=== PATIENT | female | born 1980 | race Caucasian/White ===

== ENCOUNTER 2021-09-20 08:21 | Outpatient (REF) | payer OTHER, SELFPAY ==
[2021-09-20 09:35] LABS: Anion Gap 12 (12-20); Blood Urea Nitrogen 9 mg/dL (9-16); Calcium 9.8 mg/dL (8.4-10.2); Carbon Dioxide 27 mmol/L (22-29); Chloride 107 mmol/L (96-108); Estimated Glomerular Filt Rate > 60; Glucose Random 109 mg/dL (60-115); Potassium 4.2 mmol/L (3.3-5.1); Sodium 142 mmol/L (135-145)
[2021-09-27 00:26] LABS: Beta-Hydroxybutyrate 0.09 mmol/L
== END 2021-09-20 08:22 | disposition home or self-care (01) ==
LOC: HO.LAB 08:21
PROVIDERS: PCP Family Medicine; Visit Provider Family Medicine
DX: E11.65 Type 2 diabetes mellitus with hyperglycemia (principal)
CPT/HCPCS: 36415; 80048; 82010

== ENCOUNTER 2021-10-11 10:50 | Outpatient (REF) | payer OTHER, SELFPAY ==
[2021-10-13 01:35] LABS: C Peptide 3.21 ng/mL (0.80-3.85)
[2021-10-16 20:17] LABS: Glutamic acid decarboxylase Ab <5 IU/mL (<5)
== END 2021-10-11 10:51 | disposition home or self-care (01) ==
LOC: HO.LAB 10:50
PROVIDERS: PCP Nurse Practitioner Primary Care; Visit Provider Nurse Practitioner Neonatal
DX: E11.65 Type 2 diabetes mellitus with hyperglycemia (principal)
CPT/HCPCS: 36415; 84681; 86341

== ENCOUNTER 2021-11-27 08:32 | Outpatient (REF) | payer OTHER, SELFPAY ==
[2021-11-27 09:33] LABS: Estimated Average Glucose 131 mg/dL; Hemoglobin A1c % 6.2 %
== END 2021-11-27 08:33 | disposition home or self-care (01) ==
LOC: HO.LAB 08:32
PROVIDERS: PCP Family Medicine; Visit Provider Nurse Practitioner Neonatal
DX: E11.65 Type 2 diabetes mellitus with hyperglycemia (principal)
CPT/HCPCS: 36415; 83036

== ENCOUNTER 2022-10-08 14:02 | Emergency (ER) | payer OTHER, MEDICAID, SELFPAY ==
--- NOTE | ~2022-10-08 | XR_ITS ---
EXAMINATION: XR CHEST CLINICAL INFORMATION: Pneumonia COMPARISON: None TECHNIQUE: Frontal view of the chest was obtained. FINDINGS: No significant abnormality is noted involving the heart, lungs, mediastinum, bony thorax or soft tissues. XR/XR chest 1V IMPRESSION: No acute pulmonary disease.
[2022-10-08 14:21] VITALS: BP 152/86; PULSE 111; RESP 18; TEMP 36.3; O2SAT 99; BMI 33.6
--- NOTE | 2022-10-08 14:27 | ECG_ITS ---
Test Reason : HEART RACING Blood Pressure : / mmHG Vent. Rate : 107 BPM Atrial Rate : 107 BPM P-R Int : 154 ms QRS Dur : 072 ms QT Int : 318 ms P-R-T Axes : 054 [id number] 006 degrees QTc Int : 424 ms Sinus tachycardia Otherwise normal ECG No previous ECGs available Referred By: Emanuel Rowland Electronically Signed By:SONALI VALLADARES MD
--- NOTE | 2022-10-08 14:28 | ED_ITS ---
HPI - General Adult General Chief complaint: General Medical <DUNIA Guthrie - Last Filed: 10/08/22 19:43> Stated complaint: blood sugar issue <DUNIA Guthrie Last Filed: 10/08/22 19:43> Time Seen by Provider: 10/08/22 15:17 <DUNIA Guthrie - Last Filed: 10/08/22 19:43> Source: patient <DUNIA Chinchilla Last Filed: 10/08/22 16:00> Mode of arrival: ambulatory <DUNIA Chinchilla - Last Filed: 10/08/22 16:00> Limitations: no limitations <DUNIA Chinchilla Last Filed: 10/08/22 16:00> History of Present Illness HPI narrative: Patient is a 41 year old assigned female at with a history of DM presenting to the emergency department today with episodes of hypoglycemia. Patient states that over the last few days she has had episodes of hypoglycemia that is associated with palpitations and a headache. Patient denies any recent medication changes. Patient denies any current dizziness, lightheadedness, abdominal pain, nausea, vomiting, fever, chills, blurry vision, double vision, loss of vision, chest pain, difficulty breathing, shortness of breath, back pain, night sweats, pain with urination, increased urinary frequency, increased urinary urgency, blood in her urine or stool, syncope or a near syncopal episode, recent trauma or falls, bowel incontinence, bladder incontinence, bowel retention, bladder retention, or any other complaints at this time. <DUNIA Chinchilla Last Filed: 10/08/22 16:00> Onset (ago): day(s) (3) <DUNIA Chinchilla - Last Filed: 10/08/22 16:00> Severity: mild <DUNIA Chinchilla Last Filed: 10/08/22 16:00> Severity scale (1-10): 2 <DUNIA Chinchilla Last Filed: 10/08/22 16:00> Relieving factors: none <DUNIA Chinchilla Last Filed: 10/08/22 16:00> Exacerbating factors: none <DUNIA Chinchilla Last Filed: 10/08/22 16:00> Associated symptoms: denies other symptoms <DUNIA Chinchilla Last Filed: 10/08/22 16:00> Treatments prior to arrival: none <DUNIA Chinchilla Last Filed: 10/08/22 16:00> Related Data Allergies/adverse reactions: Allergies Allergy/AdvReac Type Severity Reaction Status Date / Time amoxicillin [From AUGMENTIN] Allergy Unknown HIVES Unverified 06/09/20 19:28 clavulanic acid Allergy Unknown HIVES Unverified 06/09/20 19:28 [From AUGMENTIN] <DUNIA Guthrie - Last Filed: 10/08/22 19:43> Review of Systems Constitutional: Constitutional: Reports no additional constitutional complaints, Denies chills, Denies fever(s) and Denies night sweats <DUNIA Chinchilla Last Filed: 10/08/22 16:00> Eyes: Eyes: Reports no additional eye complaints, Denies blurry vision, Denies change in vision, Denies diplopia, Denies eye discharge, Denies loss of vision and Denies eye pain <DUNIA Chinchilla Last Filed: 10/08/22 16:00> ENT: Denies dizziness <DUNIA Chinchilla Last Filed: 10/08/22 16:00> Cardiovascular: Cardiovascular: Reports no additional cardiovascular complaints, Denies chest pain, Denies lightheadedness, Denies Loss of Consciousness and Denies dyspnea <DUNIA Chinchilla Last Filed: 10/08/22 16:00> Respiratory: Respiratory: Reports no additional respiratory complaints and Denies dyspnea <DUNIA Chinchilla Last Filed: 10/08/22 16:00> Gastrointestinal: Gastrointestinal: Reports no additional gastrointestinal complaints, Denies abdominal pain, Denies melena, Denies hematochezia, Denies change in bowel habits and Denies change in stool character <DUNIA Chinchilla Last Filed: 10/08/22 16:00> Genitourinary: Genitourinary: Denies hematuria, Denies urinary frequency, Denies dysuria, Denies urinary incontinence, Denies urinary hesitancy and Denies urinary urgency <DUNIA Chinchilla Last Filed: 10/08/22 16:00> Musculoskeletal: Musculoskeletal: Reports no additional musculoskeletal complaints, Denies numbness and Denies tingling <DUNIA Chinchilla - Last Filed: 10/08/22 16:00> Neurologic: Denies dizziness, Denies loss of vision, Denies numbness and Marlon es tingling <DUNIA Chinchilla - Last Filed: 10/08/22 16:00> Psychiatric: Psychiatric: Reports no additional psychiatric complaints <DUNIA Chinchilla - Last Filed: 10/08/22 16:00> Endocrine: Endocrine: Reports no additional endocrine complaints <DUNIA Chinchilla - Last Filed: 10/08/22 16:00> Hematologic/Lymphatic: Hematologic/Lymphatic: Reports no additional hematologic/lymphatic complaints <DUNIA Chinchilla - Last Filed: 10/08/22 16:00> Allergic/Immunologic: Allergic/Immunologic: Reports no additional allergic/immunologic complaints <DUNIA Chinchilla - Last Filed: 10/08/22 16:00> PMFSH Past Medical History Attestation statement: The following information was validated with the patient. <DUNIA Chinchilla - Last Filed: 10/08/22 16:00> Source: old records reviewed and nursing notes reviewed <DUNIA Chinchilla - Last Filed: 10/08/22 16:00> Social History Social History: Social History Advance Directives: Yes Advance Directives Information Provided: No Advance Directives on File: No <DUNIA Guthrie - Last Filed: 10/08/22 19:43> Physical Exam ED Vital Signs: Vital Signs - 24 hr 10/08/22 14:21 Temperature 97.3 F Pulse Rate 111 H Respiratory Rate 18 Blood Pressure 152/86 H Pulse Oximetry 99 Oxygen Delivery Method Room Air BMI result Body Mass Index 33.6 <DUNIA Guthrie - Last Filed: 10/08/22 19:43> Vital Signs - 24 hr 10/08/22 14:21 Temperature 97.3 F Pulse Rate 111 H Respiratory Rate 18 Blood Pressure 152/86 H Pulse Oximetry 99 Oxygen Delivery Method Room Air BMI result Body Mass Index 33.6 <DUNIA Chinchilla - Last Filed: 10/08/22 16:00> Const General: cooperative, no acute distress, alert and awake <DUNIA Chinchilla Last Filed: 10/08/22 16:00> Nutritional Appearance: well nourished <DUNIA Chinchilla - Last Filed: 10/08/22 16:00> Orientation/consciousness: patient oriented x3 <Nayeli Romeo [place] - Last Filed: 10/08/22 16:00> Limitations: no limitations <Nayeli Romeo [place] - Last Filed: 10/08/22 16:00> HENMT Head: Yes normal to inspection and Yes atraumatic <Nayeli Romeo PA - Last Filed: 10/08/22 16:00> Ears: hearing grossly normal bilaterally and external ears normal <Nayeli Romeo PA - Last Filed: 10/08/22 16:00> General nose exam: Normal external nose present, no nasal discharge noted and no epistaxis <Nayeli Romeo PA - Last Filed: 10/08/22 16:00> Face and sinus: Yes normal facial exam, No abrasion and No laceration <Nayeli Romeo [place] - Last Filed: 10/08/22 16:00> Mouth: Normal oral and palatal mucosa present, no drooling and no muffled voice <Nayeli Romeo [place] - Last Filed: 10/08/22 16:00> Eyes General: appearance normal, both eyes and all related structures <DUNIA Chinchilla - Last Filed: 10/08/22 16:00> Periorbital: periorbital findings normal <DUNIA Chinchilla - Last Filed: 10/08/22 16:00> Eyelids: Yes eyelids normal <DUNIA Chinchilla - Last Filed: 10/08/22 16:00> Conjunctivae: conjunctivae normal <DUNIA Chinchilla - Last Filed: 10/08/22 16:00> Pupils: Equal, round and reactive pupils present <DUNIA Chinchilla - Last Filed: 10/08/22 16:00> EOM: EOMs intact bilaterally <DUNIA Chinchilla - Last Filed: 10/08/22 16:00> Neck Neck: Yes normal visual inspection, Yes full ROM and Yes no lymphadenopathy <DUNIA Chinchilla - Last Filed: 10/08/22 16:00> Chest Chest palpation & inspection: normal inspection of the chest <Nayeli RomeoDUNIA - Last Filed: 10/08/22 16:00> Resp Effort & Inspection: normal respiratory effort and able to speak in complete sentences <Nayeli Romeo PA - Last Filed: 10/08/22 16:00> Auscultation: clear to auscultation bilaterally <Nayeli Romeo PA - Last Filed: 10/08/22 16:00> Cardio Rate: tachycardic <Nayeli Romeo PA - Last Filed: 10/08/22 16:00> Rhythm: regular rhythm <Nayeli Romeo PA - Last Filed: 10/08/22 16:00> GI Inspection: Yes normal to inspection <Nayeli RomeoDUNIA - Last Filed: 10/08/22 16:00> Palpation (GI): Soft to palpation, not firm, nontender, no guarding and not rigid <Nayeli Romeo PA - Last Filed: 10/08/22 16:00> Neuro General: patient oriented x3 and moves all extremities <Nayeli Johnsonmatilda PA - Last Filed: 10/08/22 16:00> Cranial nerves: Yes Equal, round and reactive pupils present <Nayeli Romeo PA - Last Filed: 10/08/22 16:00> Cognition (Neuro): normal cognition <Nayeli Romeo PA - Last Filed: 10/08/22 16:00> Motor exam (neuro): 5/5 motor strength present throughout <Nayeli Romeo PA - Last Filed: 10/08/22 16:00> Sensory Exam: Normal double simultaneous stimulation for sensation <Nayeli Johnsonmatilda PA - Last Filed: 10/08/22 16:00> Coordination: [id number] test normal <Nayeli Romeo PA - Last Filed: 10/08/22 16:00> Extrem General: Yes normal to inspection, Yes full ROM and Yes capillary refill normal <Nayeli JohnsonDUNIA grey - Last Filed: 10/08/22 16:00> Psych Appearance: grossly normal <Nayeli JohnsonDUNIA grey - Last Filed: 10/08/22 16:00> Mental Status: mental status grossly normal <Nayelichantelle JohnsonDUNIA grey - Last Filed: 10/08/22 16:00> Affect: normal affect <DUNIA Chinchilla Last Filed: 10/08/22 16:00> Attitude: cooperative <DUNIA Chinchilla Last Filed: 10/08/22 16:00> Thought process: Normal thought process present <DUNIA Chinchilla Last Filed: 10/08/22 16:00> Thought content: Normal thought content present <DUNIA Chinchilla Last Filed: 10/08/22 16:00> Insight: Good insight present (Psych) <DUNIA Chinchilla Last Filed: 10/08/22 16:00> Course Course Course Narrative: RME: patient presents to the ED for recurrent episodes of hypgolcyemia for one week with headache and heart poudning. labs, EKG, glucose POC ordered. Chest xray ordered <DUNIA Guthrie - Last Filed: 10/08/22 19:43> Medical Decision Making Medical Decision Making MDM Narrative: Patient is a 41 year old assigned female at with a history of DM presenting to the emergency department today with intermittent hypoglycemia. Patient's physical exam showed mild tachycardia but was otherwise unremarkable. Patient's blood work showed a slightly elevated WBC count of 12.1 which I attribute to a stress reaction. Patient's urine showed no acute process. Patient's EKG was unremarkable. Patient's x-ray showed no acute process. Patient's COVID-19 test was positive. I explained my physical exam findings as well as all test results to the patient. I answered all questions asked by the patient. I stressed the importance of the patient taking her medication as prescribed. I stressed the importance of the patient following up with her primary care provider. I stressed the importance of the patient returning to the emergency department immediately if her symptoms were to worsen or if she were to develop any dizziness, shortness of breath, difficulty breathing, chest pain, blurry vision, loss of vision, nausea, vomiting, abdominal pain, fever, chills, back pain, or any other complaints. Patient verbalized agreement and understanding with this treatment plan and discharge. <DUNIA Chinchilla Last Filed: 10/08/22 16:00> Differential Diagnosis Differential Diagnoses: The differential diagnosis associated with the presentation includes <DUNIA Chinchilla Last Filed: 10/08/22 16:00> COVID-19, hypoglycemia <DUNIA Chinchilla - Last Filed: 10/08/22 16:00> Lab Data MDM Lab Attestation statement: I reviewed the patient's lab results. <DUNIA Chinchilla - Last Filed: 10/08/22 16:00> Result Diagrams: 10/08/22 14:40 10/08/22 14:40 <DUNIA Guthrie - Last Filed: 10/08/22 19:43> Labs: Lab Results 10/08/22 10/08/22 10/08/22 Range/Units 14:30 14:40 14:40 WBC 12.1 H (4.8-10.8) X10*3/uL RBC 5.42 (4.20-5.50) X10*6/uL Hgb 16.2 H (12.0-16.0) g/dl Hct 46.2 (37.0-47.0) % MCV 85.2 (80.0-98.0) fL MCH 29.9 (27.0-33.0) pg MCHC 35.1 H (31.0-35.0) g/dl RDW 12.0 (11.0-16.0) % Plt Count 259 (160-400) X10*3/uL MPV 10.3 (9.4-12.3) fL Immature Gran % (Auto) 0.3 (0.0-0.4) % Neut % (Auto) 81.4 H (45-73) % Lymph % (Auto) 11.7 L (20-40) % Stokes % (Auto) 5.8 (2-11) % Eos % (Auto) 0.3 (0-4) % Baso % (Auto) 0.5 (0-2) % Lymph # (Auto) 1.4 (1.2-4.9) X10*3/uL Stokes # (Auto) 0.7 (0.1-1.2) X10*3/uL Eos # (Auto) 0.0 (0.0-0.4) X10*3/uL Baso # (Auto) 0.1 (0.0-0.2) X10*3/uL Abs Immat Gran (auto) 0.04 H (0.00-0.03) X10*3/uL Absolute Neuts (auto) 9.9 H (2.0-8.3) x10*3/uL Absolute Nucleated RBC 0.000 (0.0-0.012) X10*3/uL Nucleated RBC % (auto) 0.0 (0.0-0.2) /100WBC PT (10.0-13.1) SEC INR (0.9-1.1) APTT (26.0-36.4) SEC Sodium 139 (135-145) mmol/L Potassium 4.1 (3.3-5.1) mmol/L Chloride 105 (96-108) mmol/L Carbon Dioxide 26 (22-29) mmol/L Anion Gap 12 (12-20) BUN 10 (9-16) mg/dL Creatinine 0.75 (0.5-1.4) mg/dL Estim Creat Clear Calc 102.7 Estimated GFR > 60 POC Glucose 103 (60-115) mg/dL Random Glucose 96 (60-115) mg/dL Calcium 9.2 D (8.4-10.2) mg/dL Total Bilirubin 0.4 (0.0-1.0) mg/dL AST 14 (5-31) U/L ALT 19 (0-31) U/L Alkaline Phosphatase 90 (39-117) U/L Troponin I High Sens (<3.5-17.0) ng/L Total Protein 7.9 (6.5-8.0) g/dL Albumin 4.3 (3.5-5.0) g/dL Urine Color Urine Appearance Urine pH (5.0-9.0) Ur Specific [place] (1.005-1.025) Urine Protein (Neg-Trace) mg/dL Urine Glucose (UA) (Negative) mg/dL Urine Ketones (Negative) mg/dL Urine Blood (Negative) Urine Nitrite (Negative) Ur Leukocyte Esterase (Negative) Influenza Type A (PCR) (Negative) Influenza Type B (PCR) (Negative) RSV RNA Qual (PCR) (Negative) SARS-CoV-2 RNA (RT-PCR) (Negative) 10/08/22 10/08/22 10/08/22 Range/Units 14:40 14:40 14:40 WBC (4.8-10.8) X10*3/uL RBC (4.20-5.50) X10*6/uL Hgb (12.0-16.0) g/dl Hct (37.0-47.0) % MCV (80.0-98.0) fL MCH (27.0-33.0) pg MCHC (31.0-35.0) g/dl RDW (11.0-16.0) % Plt Count (160-400) X10*3/uL MPV (9.4-12.3) fL Immature Gran % (Auto) (0.0-0.4) % Neut % (Auto) (45-73) % Lymph % (Auto) (20-40) % Stokes % (Auto) (2-11) % Eos % (Auto) (0-4) % Baso % (Auto) (0-2) % Lymph # (Auto) (1.2-4.9) X10*3/uL Stokes # (Auto) (0.1-1.2) X10*3/uL Eos # (Auto) (0.0-0.4) X10*3/uL Baso # (Auto) (0.0-0.2) X10*3/uL Abs Immat Gran (auto) (0.00-0.03) X10*3/uL Absolute Neuts (auto) (2.0-8.3) x10*3/uL Absolute Nucleated RBC (0.0-0.012) X10*3/uL Nucleated RBC % (auto) (0.0-0.2) /100WBC PT 11.7 (10.0-13.1) SEC INR 1.0 (0.9-1.1) APTT 34.5 (26.0-36.4) SEC Sodium (135-145) mmol/L Potassium (3.3-5.1) mmol/L Chloride (96-108) mmol/L Carbon Dioxide (22-29) mmol/L Anion Gap (12-20) BUN (9-16) mg/dL Creatinine (0.5-1.4) mg/dL Estim Creat Clear Calc Estimated GFR POC Glucose (60-115) mg/dL Random Glucose (60-115) mg/dL Calcium (8.4-10.2) mg/dL Total Bilirubin (0.0-1.0) mg/dL AST (5-31) U/L ALT (0-31) U/L Alkaline Phosphatase (39-117) U/L Troponin I High Sens < 3.5 (<3.5-17.0) ng/L Total Protein (6.5-8.0) g/dL Albumin (3.5-5.0) g/dL Urine Color Urine Appearance Urine pH (5.0-9.0) Ur Specific [place] (1.005-1.025) Urine Protein (Neg-Trace) mg/dL Urine Glucose (UA) (Negative) mg/dL Urine Ketones (Negative) mg/dL Urine Blood (Negative) Urine Nitrite (Negative) Ur Leukocyte Esterase (Negative) Influenza Type A (PCR) NEGATIVE (Negative) Influenza Type B (PCR) NEGATIVE (Negative) RSV RNA Qual (PCR) NEGATIVE (Negative) SARS-CoV-2 RNA (RT-PCR) POSITIVE A (Negative) 10/08/22 Range/Units 14:48 WBC (4.8-10.8) X10*3/uL RBC (4.20-5.50) X10*6/uL Hgb (12.0-16.0) g/dl Hct (37.0-47.0) % MCV (80.0-98.0) fL MCH (27.0-33.0) pg MCHC (31.0-35.0) g/dl RDW (11.0-16.0) % Plt Count (160-400) X10*3/uL MPV (9.4-12.3) fL Immature Gran % (Auto) (0.0-0.4) % Neut % (Auto) (45-73) % Lymph % (Auto) (20-40) % Stokes % (Auto) (2-11) % Eos % (Auto) (0-4) % Baso % (Auto) (0-2) % Lymph # (Auto) (1.2-4.9) X10*3/uL Stokes # (Auto) (0.1-1.2) X10*3/uL Eos # (Auto) (0.0-0.4) X10*3/uL Baso # (Auto) (0.0-0.2) X10*3/uL Abs Immat Gran (auto) (0.00-0.03) X10*3/uL Absolute Neuts (auto) (2.0-8.3) x10*3/uL Absolute Nucleated RBC (0.0-0.012) X10*3/uL Nucleated RBC % (auto) (0.0-0.2) /100WBC PT (10.0-13.1) SEC INR (0.9-1.1) APTT (26.0-36.4) SEC Sodium (135-145) mmol/L Potassium (3.3-5.1) mmol/L Chloride (96-108) mmol/L Carbon Dioxide (22-29) mmol/L Anion Gap (12-20) BUN (9-16) mg/dL Creatinine (0.5-1.4) mg/dL Estim Creat Clear Calc Estimated GFR POC Glucose (60-115) mg/dL Random Glucose (60-115) mg/dL Calcium (8.4-10.2) mg/dL Total Bilirubin (0.0-1.0) mg/dL AST (5-31) U/L ALT (0-31) U/L Alkaline Phosphatase (39-117) U/L Troponin I High Sens (<3.5-17.0) ng/L Total Protein (6.5-8.0) g/dL Albumin (3.5-5.0) g/dL Urine Color Yellow Urine Appearance Clear Urine pH 6.5 (5.0-9.0) Ur Specific [place] 1.010 (1.005-1.025) Urine Protein Negative (Neg-Trace) mg/dL Urine Glucose (UA) Negative (Negative) mg/dL Urine Ketones Negative (Negative) mg/dL Urine Blood Negative (Negative) Urine Nitrite Negative (Negative) Ur Leukocyte Esterase Negative (Negative) Influenza Type A (PCR) (Negative) Influenza Type B (PCR) (Negative) RSV RNA Qual (PCR) (Negative) SARS-CoV-2 RNA (RT-PCR) (Negative) <DUNIA Guthrie - Last Filed: 10/08/22 19:43> Lab Results 10/08/22 10/08/22 10/08/22 Range/Units 14:30 14:40 14:40 WBC 12.1 H (4.8-10.8) X10*3/uL RBC 5.42 (4.20-5.50) X10*6/uL Hgb 16.2 H (12.0-16.0) g/dl Hct 46.2 (37.0-47.0) % MCV 85.2 (80.0-98.0) fL MCH 29.9 (27.0-33.0) pg MCHC 35.1 H (31.0-35.0) g/dl RDW 12.0 (11.0-16.0) % Plt Count 259 (160-400) X10*3/uL MPV 10.3 (9.4-12.3) fL Immature Gran % (Auto) 0.3 (0.0-0.4) % Neut % (Auto) 81.4 H (45-73) % Lymph % (Auto) 11.7 L (20-40) % Stokes % (Auto) 5.8 (2-11) % Eos % (Auto) 0.3 (0-4) % Baso % (Auto) 0.5 (0-2) % Lymph # (Auto) 1.4 (1.2-4.9) X10*3/uL Stokes # (Auto) 0.7 (0.1-1.2) X10*3/uL Eos # (Auto) 0.0 (0.0-0.4) X10*3/uL Baso # (Auto) 0.1 (0.0-0.2) X10*3/uL Abs Immat Gran (auto) 0.04 H (0.00-0.03) X10*3/uL Absolute Neuts (auto) 9.9 H (2.0-8.3) x10*3/uL Absolute Nucleated RBC 0.000 (0.0-0.012) X10*3/uL Nucleated RBC % (auto) 0.0 (0.0-0.2) /100WBC PT (10.0-13.1) SEC INR (0.9-1.1) APTT (26.0-36.4) SEC Sodium 139 (135-145) mmol/L Potassium 4.1 (3.3-5.1) mmol/L Chloride 105 (96-108) mmol/L Carbon Dioxide 26 (22-29) mmol/L Anion Gap 12 (12-20) BUN 10 (9-16) mg/dL Creatinine 0.75 (0.5-1.4) mg/dL Estim Creat Clear Calc 102.7 Estimated GFR > 60 POC Glucose 103 (60-115) mg/dL Random Glucose 96 (60-115) mg/dL Calcium 9.2 D (8.4-10.2) mg/dL Total Bilirubin 0.4 (0.0-1.0) mg/dL AST 14 (5-31) U/L ALT 19 (0-31) U/L Alkaline Phosphatase 90 (39-117) U/L Troponin I High Sens (<3.5-17.0) ng/L Total Protein 7.9 (6.5-8.0) g/dL Albumin 4.3 (3.5-5.0) g/dL Urine Color Urine Appearance Urine pH (5.0-9.0) Ur Specific [place] (1.005-1.025) Urine Protein (Neg-Trace) mg/dL Urine Glucose (UA) (Negative) mg/dL Urine Ketones (Negative) mg/dL Urine Blood (Negative) Urine Nitrite (Negative) Ur Leukocyte Esterase (Negative) Influenza Type A (PCR) (Negative) Influenza Type B (PCR) (Negative) RSV RNA Qual (PCR) (Negative) SARS-CoV-2 RNA (RT-PCR) (Negative) 10/08/22 10/08/22 10/08/22 Range/Units 14:40 14:40 14:40 WBC (4.8-10.8) X10*3/uL RBC (4.20-5.50) X10*6/uL Hgb (12.0-16.0) g/dl Hct (37.0-47.0) % MCV (80.0-98.0) fL MCH (27.0-33.0) pg MCHC (31.0-35.0) g/dl RDW (11.0-16.0) % Plt Count (160-400) X10*3/uL MPV (9.4-12.3) fL Immature Gran % (Auto) (0.0-0.4) % Neut % (Auto) (45-73) % Lymph % (Auto) (20-40) % [place] % (Auto) (2-11) % Eos % (Auto) (0-4) % Baso % (Auto) (0-2) % Lymph # (Auto) (1.2-4.9) X10*3/uL [place] # (Auto) (0.1-1.2) X10*3/uL Eos # (Auto) (0.0-0.4) X10*3/uL Baso # (Auto) (0.0-0.2) X10*3/uL Abs Immat Gran (auto) (0.00-0.03) X10*3/uL Absolute Neuts (auto) (2.0-8.3) x10*3/uL Absolute Nucleated RBC (0.0-0.012) X10*3/uL Nucleated RBC % (auto) (0.0-0.2) /100WBC PT 11.7 (10.0-13.1) SEC INR 1.0 (0.9-1.1) APTT 34.5 (26.0-36.4) SEC Sodium (135-145) mmol/L Potassium (3.3-5.1) mmol/L Chloride (96-108) mmol/L Carbon Dioxide (22-29) mmol/L Anion Gap (12-20) BUN (9-16) mg/dL Creatinine (0.5-1.4) mg/dL Estim Creat Clear Calc Estimated GFR POC Glucose (60-115) mg/dL Random Glucose (60-115) mg/dL Calcium (8.4-10.2) mg/dL Total Bilirubin (0.0-1.0) mg/dL AST (5-31) U/L ALT (0-31) U/L Alkaline Phosphatase (39-117) U/L Troponin I High Sens < 3.5 (<3.5-17.0) ng/L Total Protein (6.5-8.0) g/dL Albumin (3.5-5.0) g/dL Urine Color Urine Appearance Urine pH (5.0-9.0) Ur Specific [place] (1.005-1.025) Urine Protein (Neg-Trace) mg/dL Urine Glucose (UA) (Negative) mg/dL Urine Ketones (Negative) mg/dL Urine Blood (Negative) Urine Nitrite (Negative) Ur Leukocyte Esterase (Negative) Influenza Type A (PCR) NEGATIVE (Negative) Influenza Type B (PCR) NEGATIVE (Negative) RSV RNA Qual (PCR) NEGATIVE (Negative) SARS-CoV-2 RNA (RT-PCR) POSITIVE A (Negative) 10/08/22 Range/Units 14:48 WBC (4.8-10.8) X10*3/uL RBC (4.20-5.50) X10*6/uL Hgb (12.0-16.0) g/dl Hct (37.0-47.0) % MCV (80.0-98.0) fL MCH (27.0-33.0) pg MCHC (31.0-35.0) g/dl RDW (11.0-16.0) % Plt Count (160-400) X10*3/uL MPV (9.4-12.3) fL Immature Gran % (Auto) (0.0-0.4) % Neut % (Auto) (45-73) % Lymph % (Auto) (20-40) % [place] % (Auto) (2-11) % Eos % (Auto) (0-4) % Baso % (Auto) (0-2) % Lymph # (Auto) (1.2-4.9) X10*3/uL [place] # (Auto) (0.1-1.2) X10*3/uL Eos # (Auto) (0.0-0.4) X10*3/uL Baso # (Auto) (0.0-0.2) X10*3/uL Abs Immat Gran (auto) (0.00-0.03) X10*3/uL Absolute Neuts (auto) (2.0-8.3) x10*3/uL Absolute Nucleated RBC (0.0-0.012) X10*3/uL Nucleated RBC % (auto) (0.0-0.2) /100WBC PT (10.0-13.1) SEC INR (0.9-1.1) APTT (26.0-36.4) SEC Sodium (135-145) mmol/L Potassium (3.3-5.1) mmol/L Chloride (96-108) mmol/L Carbon Dioxide (22-29) mmol/L Anion Gap (12-20) BUN (9-16) mg/dL Creatinine (0.5-1.4) mg/dL Estim Creat Clear Calc Estimated GFR POC Glucose (60-115) mg/dL Random Glucose (60-115) mg/dL Calcium (8.4-10.2) mg/dL Total Bilirubin (0.0-1.0) mg/dL AST (5-31) U/L ALT (0-31) U/L Alkaline Phosphatase (39-117) U/L Troponin I High Sens (<3.5-17.0) ng/L Total Protein (6.5-8.0) g/dL Albumin (3.5-5.0) g/dL Urine Color Yellow Urine Appearance Clear Urine pH 6.5 (5.0-9.0) Ur Specific [place] 1.010 (1.005-1.025) Urine Protein Negative (Neg-Trace) mg/dL Urine Glucose (UA) Negative (Negative) mg/dL Urine Ketones Negative (Negative) mg/dL Urine Blood Negative (Negative) Urine Nitrite Negative (Negative) Ur Leukocyte Esterase Negative (Negative) Influenza Type A (PCR) (Negative) Influenza Type B (PCR) (Negative) RSV RNA Qual (PCR) (Negative) SARS-CoV-2 RNA (RT-PCR) (Negative) <DUNIA Chinchilla - Last Filed: 10/08/22 16:00> Independent Interpretation I performed an independent interpretation of an: EKG <DUNIA Chinchilla - Last Filed: 10/08/22 16:00> Interpretation: Vent. Rate: 107 BPM ? ? Atrial Rate: 107 BPM P-R Int: 154 ms? QRS Dur: 072 ms QT Int: 318 ms ? ? ? P-R-T Axes: 054 007 006 degrees QTc Int: 424 ms ? Sinus tachycardia Otherwise normal ECG No previous ECGs available DD/ 1444 <DUNIA Chinchilla - Last Filed: 10/08/22 16:00> Radiology Impression Discussion of test interpretation with radiology: I have reviewed the radiologist's reading. <DUNIA Chinchilla - Last Filed: 10/08/22 16:00> Radiologist Impression: My interpretation is in agreement with the radiologist's impression of this imaging study. EXAMINATION: XR CHEST CLINICAL INFORMATION: Pneumonia COMPARISON: None TECHNIQUE: Frontal view of the chest was obtained. FINDINGS: No significant abnormality is noted involving the heart, lungs, mediastinum, bony thorax or soft tissues. XR/XR chest 1V IMPRESSION: No acute pulmonary disease. Dictated By: Marbin Albarado MD Signed By: Electronically signed by Marbin Albarado MD 10/08/22 1544 <DUNIA Chinchilla - Last Filed: 10/08/22 16:00> Discharge Plan Discharge Clinical Impression: COVID-19 <DUNIA Guthrie Last Filed: 10/08/22 19:43> Patient Disposition: Home, Self-Care <DUNIA Guthrie Last Filed: 10/08/22 19:43> Instructions: COVID-19 (Coronavirus Disease 2019) (ED) <DUNIA Guthrie - Last Filed: 10/08/22 19:43> Additional Instructions: Follow up with your primary care provider. Return to the emergency department immediately if your symptoms worsen or if you develop any dizziness, shortness of breath, difficulty breathing, chest pain, blurry vision, loss of vision, nausea, vomiting, abdominal pain, fever, chills, back pain, or any other complaints. <DUNIA Guthrie Last Filed: 10/08/22 19:43> Referrals: Azar Koenig MD [Primary Care Provider] - <DUNIA Guthrie Last Filed: 10/08/22 19:43> Stand Alone Forms: Work/School Release <DNUIA Guthrie Last Filed: 10/08/22 19:43> Interventions: ED Discharge Assessment Last Done: 10/08/22 15:45 <DUNIA Guthrie - Last Filed: 10/08/22 19:43> Discharge Date/Time: 10/08/22 15:45 <DUNIA Guthrie - Last Filed: 10/08/22 19:43> Print Language: Macanese <DUNIA Guthrie - Last Filed: 10/08/22 19:43>
[2022-10-08 14:33] LABS: Glucose, Whole Blood 103 mg/dL (60-115)
[2022-10-08 14:45] LABS: MANUAL DIFF FLAG NO
[2022-10-08 14:49] LABS: Basophils Absolute Auto 0.1 X10*3/uL (0.0-0.2); Basophils Percent Auto 0.5 % (0-2); Eosinophils Percent Auto 0.3 % (0-4); Hematocrit 46.2 % (37.0-47.0); Hemoglobin 16.2 g/dl (12.0-16.0); Imm Gran Abs Auto 0.04 X10*3/uL (0.00-0.03); Imm Gran Pct Auto 0.3 % (0.0-0.4); Lymphocytes Absolute Auto 1.4 X10*3/uL (1.2-4.9); Lymphocytes Percent Auto 11.7 % (20-40); Mean Corpuscular HGB Conc 35.1 g/dl (31.0-35.0); Mean Corpuscular Hemoglobin 29.9 pg (27.0-33.0); Mean Corpuscular Volume 85.2 fL (80.0-98.0); Mean Platelet Volume 10.3 fL (9.4-12.3); Monocytes Absolute Auto 0.7 X10*3/uL (0.1-1.2); Monocytes Percent Auto 5.8 % (2-11); Neutrophils Absolute Auto 9.9 x10*3/uL (2.0-8.3); Neutrophils Percent Auto 81.4 % (45-73); Platelet Count 259 X10*3/uL (160-400); Red Blood Count 5.42 X10*6/uL (4.20-5.50); White Blood Count 12.1 X10*3/uL (4.8-10.8)
[2022-10-08 14:54] LABS: Prothrombin Time 11.7 SEC (10.0-13.1)
[2022-10-08 14:55] LABS: Appearance Urine Clear; Color Urine Yellow; Glucose Urine UA Negative (Negative); Leukocyte Esterase Urine Negative (Negative); Nitrite Urine Negative (Negative); PH 6.5 (5.0-9.0); Urine Blood Negative (Negative); Urine Ketones Negative (Negative); Urine Protein Negative (Neg-Trace)
[2022-10-08 14:56] LABS: Partial Thromboplastin Time 34.5 SEC (26.0-36.4)
[2022-10-08 15:02] LABS: Alanine Aminotransferase 19 U/L (0-31); Albumin Level 4.3 g/dL (3.5-5.0); Alkaline Phosphatase 90 U/L (39-117); Anion Gap 12 (12-20); Aspartate Amino Transferase 14 U/L (5-31); Bilirubin Total 0.4 mg/dL (0.0-1.0); Blood Urea Nitrogen 10 mg/dL (9-16); Calcium 9.2 mg/dL (8.4-10.2); Carbon Dioxide 26 mmol/L (22-29); Chloride 105 mmol/L (96-108); Creatinine Clr Calc Pharmacy 102.7; Estimated Glomerular Filt Rate > 60; Glucose Random 96 mg/dL (60-115); Potassium 4.1 mmol/L (3.3-5.1); Sodium 139 mmol/L (135-145); Total Protein 7.9 g/dL (6.5-8.0)
[2022-10-08 15:10] LABS: Troponin-I High Sensitivity < 3.5 ng/L (<3.5-17.0)
[2022-10-08 15:29] LABS: Influenza A PCR NEGATIVE (Negative); Influenza B PCR NEGATIVE (Negative); Resp Syncy Virus RNA Qual PCR NEGATIVE (Negative); SARS COV2 PCR INHOUSE POSITIVE (Negative)
== END 2022-10-08 15:45 | disposition home or self-care (01) ==
PROVIDERS: Physician Assistant; Emergency Provider Emergency Medicine; PCP Internal Medicine
DX: U07.1 COVID-19 (principal); E11.9 Type 2 diabetes mellitus without complications
CPT/HCPCS: 0241U; 36415; 71045; 80053; 81003; 82947; 84484; 85025; 85610; 85730; 93005; 99283

== ENCOUNTER 2022-11-15 16:04 | Outpatient (REF) | payer OTHER, SELFPAY ==
[2022-11-15 16:13] LABS: MANUAL DIFF FLAG NO
[2022-11-15 17:47] LABS: Basophils Absolute Auto 0.1 X10*3/uL (0.0-0.2); Basophils Percent Auto 0.5 % (0-2); Eosinophils Absolute Auto 0.1 X10*3/uL (0.0-0.4); Eosinophils Percent Auto 0.7 % (0-4); Hematocrit 44.4 % (37.0-47.0); Hemoglobin 14.7 g/dl (12.0-16.0); Imm Gran Abs Auto 0.06 X10*3/uL (0.00-0.03); Imm Gran Pct Auto 0.5 % (0.0-0.4); Lymphocytes Absolute Auto 3.6 X10*3/uL (1.2-4.9); Lymphocytes Percent Auto 28.8 % (20-40); Mean Corpuscular HGB Conc 33.1 g/dl (31.0-35.0); Mean Corpuscular Hemoglobin 29.8 pg (27.0-33.0); Mean Corpuscular Volume 90.1 fL (80.0-98.0); Mean Platelet Volume 10.8 fL (9.4-12.3); Monocytes Absolute Auto 0.9 X10*3/uL (0.1-1.2); Monocytes Percent Auto 7.2 % (2-11); Neutrophils Absolute Auto 7.8 x10*3/uL (2.0-8.3); Neutrophils Percent Auto 62.3 % (45-73); Platelet Count 279 X10*3/uL (160-400); Red Blood Count 4.93 X10*6/uL (4.20-5.50); White Blood Count 12.5 X10*3/uL (4.8-10.8)
[2022-11-15 17:48] LABS: Estimated Average Glucose 128 mg/dL; Hemoglobin A1C 163.3096 umol/L; Hemoglobin A1c % 6.1 %
[2022-11-15 17:58] LABS: Alanine Aminotransferase 36 U/L (0-31); Albumin Level 4.2 g/dL (3.5-5.0); Alkaline Phosphatase 89 U/L (39-117); Anion Gap 14 (12-20); Aspartate Amino Transferase 15 U/L (5-31); Bilirubin Total 0.3 mg/dL (0.0-1.0); Blood Urea Nitrogen 13 mg/dL (9-16); Calcium 9.5 mg/dL (8.4-10.2); Carbon Dioxide 26 mmol/L (22-29); Chloride 103 mmol/L (96-108); Estimated Glomerular Filt Rate > 60; Glucose Random 118 mg/dL (60-115); Potassium 4.4 mmol/L (3.3-5.1); Sodium 139 mmol/L (135-145); Total Protein 7.3 g/dL (6.5-8.0)
[2022-11-15 18:14] LABS: Vitamin D 25-OH Total 20.3 ng/mL (>30)
== END 2022-11-15 16:05 | disposition home or self-care (01) ==
LOC: HO.LAB 16:04
PROVIDERS: PCP Internal Medicine; Visit Provider Internal Medicine
DX: E11.9 Type 2 diabetes mellitus without complications (principal); R53.83 Other fatigue; R23.9 Unspecified skin changes
CPT/HCPCS: 36415; 80053; 82306; 83036; 85025

== ENCOUNTER 2023-01-05 10:38 | Outpatient (REF) | payer OTHER, SELFPAY ==
--- NOTE | ~2023-01-05 | MM_ITS ---
EXAMINATION: MM SCREENING DIGITAL BREAST TOMOSYNTHESIS, BILATERAL CLINICAL INFORMATION: Screening. Asymptomatic. The lifetime risk of breast cancer based on the Tyrer-Cuzick Model is 10.2%. COMPARISON: Mammography: None available. TECHNIQUE: Digital breast tomosynthesis is performed in both the craniocaudal and mediolateral oblique views along with computer-aided detection (CAD). Synthesized 2-D images are generated from the tomosynthesis. FINDINGS: The breasts are heterogeneously dense, which may obscure small masses (ACR BI-RADS breast composition Category c). About the deep nipple line region of the left breast on mediolateral oblique projection, there is a well-circumscribed oval density measuring 7 x 3 mm in size lying approximately 9 cm from the nipple. About the medial aspect of the right breast approximately 5 cm from the nipple, there is a 6 x 9 mm circumscribed density. About the deep central aspect of the right breast, there is a lobular 9 mm density lying approximately 7 cm from the nipple. Recommend bilateral breast ultrasound and spot compression views. MM/MM tomosynthesis screening BI IMPRESSION: Bilateral findings for further evaluation as described. ASSESSMENT: BI-RADS 0: Incomplete - Need Additional Imaging Evaluation. RECOMMENDATION: 1. Additional views of the bilateral breasts. 2. Targeted ultrasound if warranted after review of the additional views. 3. Radiology department staff will contact the patient for additional imaging. This patient's information was entered into a reminder system with a target due date for their next mammogram.
== END 2023-01-05 10:39 | disposition home or self-care (01) ==
LOC: HO.MAMMO 10:38
PROVIDERS: PCP Internal Medicine; Visit Provider Internal Medicine
DX: Z12.31 Encounter for screening mammogram for malignant neoplasm of breast (principal)
CPT/HCPCS: 77063; 77067

== ENCOUNTER 2023-01-21 08:53 | Outpatient (REF) | payer OTHER, SELFPAY ==
--- NOTE | ~2023-01-21 | MM_ITS ---
EXAMINATION: MM DIAGNOSTIC DIGITAL BREAST TOMOSYNTHESIS, BILATERAL US DIAGNOSTIC ULTRASOUND BREAST, BILATERAL CLINICAL INFORMATION: Recall from screening mammography for smooth oval nodule posterior upper outer left breast and mid lower inner right breast. COMPARISON: Mammography: 01/05/2023, outside mammography 02/22/2017 ([facility] [place]). TECHNIQUE: Digital breast tomosynthesis is performed. 2D images are generated from the tomosynthesis. The following views are obtained: Spot right CC x2, spot left CC x2, exaggerated left CC, bilateral ML. Ultrasound of both breasts is targeted to the areas of interest using grayscale imaging and color Doppler without and with harmonics. Left breast is imaged posterior upper outer. Right breast is imaged central and posterior and lower inner breast. FINDINGS: There are scattered areas of fibroglandular density (ACR BI-RADS breast composition Category b). Additional views right breast demonstrate a oval circumscribed benign-appearing nodule mid lower inner breast, new finding from 2017. The other area of nodularity posterior central right breast noted on recent screening is stable from prior mammography 2017 and therefore not of significance. Additional views left breast show no persistent nodularity. Ultrasound right breast demonstrates a cyst 3:00 position 4 cm from nipple measuring approximately 9 x 4 mm. There is some fine internal avascular septation. Cyst is otherwise anechoic and there is increased through-transmission of sound and no associated color flow. This corresponds to finding on mammography. Ultrasound left breast demonstrates a simple cyst 4 x 3 mm posterior 3:00 position. Cyst is avascular with increased through-transmission of sound and no associated color flow. This corresponds to finding on mammography. Results are discussed with the patient at time of visit. MM/MM tomosynthesis added view BI IMPRESSION: Right: -Cyst with fine avascular internal septation mid 3:00 position corresponding to recent mammography. Left: -Simple cyst 4 mm posterior 3:00 position corresponding to recent mammography. ASSESSMENT: BI-RADS 2: Benign RECOMMENDATION: Routine annual mammography screening. This patient's information was entered into a reminder system with a target due date for their next mammogram.
== END 2023-01-21 08:54 | disposition home or self-care (01) ==
LOC: HO.MAMMO 08:53
PROVIDERS: PCP Internal Medicine; Visit Provider Internal Medicine
DX: N64.9 Disorder of breast, unspecified (principal)
CPT/HCPCS: 76642; 77062; 77066

== ENCOUNTER 2023-02-06 15:52 | Outpatient (REF) | payer OTHER, SELFPAY ==
[2023-02-06 19:13] LABS: MANUAL DIFF FLAG NO
[2023-02-06 19:22] LABS: Basophils Absolute Auto 0.1 X10*3/uL (0.0-0.2); Basophils Percent Auto 0.7 % (0-2); Eosinophils Absolute Auto 0.2 X10*3/uL (0.0-0.4); Eosinophils Percent Auto 1.2 % (0-4); Hematocrit 42.9 % (37.0-47.0); Imm Gran Abs Auto 0.06 X10*3/uL (0.00-0.03); Imm Gran Pct Auto 0.5 % (0.0-0.4); Lymphocytes Absolute Auto 4.1 X10*3/uL (1.2-4.9); Lymphocytes Percent Auto 31.2 % (20-40); Mean Corpuscular Hemoglobin 30.2 pg (27.0-33.0); Mean Corpuscular Volume 86.5 fL (80.0-98.0); Neutrophils Absolute Auto 7.6 x10*3/uL (2.0-8.3); Neutrophils Percent Auto 58.4 % (45-73); Platelet Count 300 X10*3/uL (160-400); Red Blood Count 4.96 X10*6/uL (4.20-5.50); Red Cell Distribution Width 11.9 % (11.0-16.0)
[2023-02-06 19:28] LABS: Alanine Aminotransferase 17 U/L (0-31); Albumin Level 4.1 g/dL (3.5-5.0); Alkaline Phosphatase 83 U/L (39-117); Anion Gap 13 (12-20); Aspartate Amino Transferase 11 U/L (5-31); Bilirubin Total 0.3 mg/dL (0.0-1.0); Blood Urea Nitrogen 12 mg/dL (9-16); Calcium 9.9 mg/dL (8.4-10.2); Carbon Dioxide 24 mmol/L (22-29); Chloride 105 mmol/L (96-108); Estimated Glomerular Filt Rate > 60; Glucose Random 97 mg/dL (60-115); Potassium 4.1 mmol/L (3.3-5.1); Sodium 138 mmol/L (135-145); Total Protein 7.3 g/dL (6.5-8.0)
[2023-02-07 07:30] LABS: Estimated Average Glucose 120 mg/dL; Hemoglobin A1c % 5.8 %
== END 2023-02-06 15:53 | disposition home or self-care (01) ==
LOC: HO.MANLDS 15:52
PROVIDERS: Visit Provider Internal Medicine
DX: E11.9 Type 2 diabetes mellitus without complications (principal)
CPT/HCPCS: 36415; 80053; 83036; 85025

== ENCOUNTER 2023-02-08 16:46 | Outpatient (REF) | payer OTHER, SELFPAY ==
--- NOTE | ~2023-02-08 | US_ITS ---
EXAMINATION: US PELVIS CLINICAL INFORMATION: Pelvic pain; there is a history of prior hysterectomy. COMPARISON: None available. TECHNIQUE: Ultrasound of the pelvis is performed using both transabdominal and transvaginal transducers along with Doppler. Transvaginal imaging is performed due to inadequate visualization transabdominally. FINDINGS: Uterus: The uterus is surgically absent. Adnexa: The right ovary is visualized, and left ovary is not visualized. There is normal color flow to the adnexa. There is no right ovarian torsion. There is no pelvic ascites or fluid collection. Right ovary 3.7 x 2.8 x 2.4 cm, volume 13.0 mL. The right ovary contains 1.8 x 1.9 x 1.8 cm corpus luteum cyst. The right ovary contains a 1.3 x 1.1 x 1.4 cm dominant follicle a small amount of free fluid is seen adjacent to the right ovary. US/US pelvic and transvaginal IMPRESSION: 1. The uterus is surgically absent. 2. The left ovary is nonvisualized. 3. There are benign appearing right ovarian cysts, as detailed. These require no imaging follow-up.
== END 2023-02-08 16:47 | disposition home or self-care (01) ==
LOC: HO.US 16:46
PROVIDERS: PCP Internal Medicine; Visit Provider Internal Medicine
DX: R10.2 Pelvic and perineal pain (principal)
CPT/HCPCS: 76830; 76856

== ENCOUNTER 2023-03-25 09:51 | Outpatient (REF) | payer OTHER, SELFPAY | END 2023-03-25 09:52 | disposition home or self-care (01) | LOC: HO.MANLDS 09:51 | PROVIDERS: Visit Provider Internal Medicine | DX: E55.9 Vitamin D deficiency, unspecified (principal) | CPT/HCPCS: 36415; 82306 ==

== ENCOUNTER 2023-04-06 07:51 | Outpatient (REF) | payer OTHER, SELFPAY ==
[2023-04-06 08:55] LABS: Iron 68 mcg/dL (30-160); Percent Iron Saturation 26 % (15-50); Total Iron Binding Capacity 262 mcg/dL (228-428); Unsaturated Iron Binding 194 ug/dL
[2023-04-06 09:11] LABS: Free T4 (Free Thyroxine) 0.86 ng/dL (0.71-1.85); Thyroid Stimulating Hormone 2.38 uIU/mL (0.32-4.0)
[2023-04-08 01:44] LABS: Triiodothyronine T3 Free 3.3 pg/mL (2.3-4.2)
== END 2023-04-06 07:52 | disposition home or self-care (01) ==
LOC: HO.LAB 07:51
PROVIDERS: PCP Internal Medicine; Visit Provider Internal Medicine
DX: R53.83 Other fatigue (principal); R63.5 Abnormal weight gain; D50.9 Iron deficiency anemia, unspecified
CPT/HCPCS: 36415; 83540; 84439; 84443; 84481

== ENCOUNTER 2023-06-20 12:00 | Emergency (ER) | payer OTHER, SELFPAY ==
--- NOTE | ~2023-06-20 | XR_ITS ---
EXAMINATION: XR CHEST CLINICAL INFORMATION: Chest pain COMPARISON: 10/08/2022 TECHNIQUE: Frontal view of the chest was obtained. FINDINGS: No significant abnormality is noted involving the heart, lungs, mediastinum, bony thorax or soft tissues. XR/XR chest 1V IMPRESSION: Unremarkable examination.
--- NOTE | 2023-06-20 12:04 | ECG_ITS ---
Test Reason : CHEST PAIN Blood Pressure : / mmHG Vent. Rate : 091 BPM Atrial Rate : 091 BPM P-R Int : 166 ms QRS Dur : 076 ms QT Int : 338 ms P-R-T Axes : 052 -03 008 degrees QTc Int : 415 ms Normal sinus rhythm Normal ECG When compared with ECG of 08-OCT-2022 14:44, No significant change was found Referred By: Emanuel Rowland Electronically Signed By:VON DENIS
[2023-06-20 12:16] VITALS: BP 132/76; PULSE 88; RESP 16; TEMP 37.3; BMI 36.2
--- NOTE | 2023-06-20 12:31 | ED.CHESTPAIN ---
HPI - Chest Pain General Chief Complaint: Chest Pain Stated Complaint: chest pain radiating into L arm Time Seen by Provider: 06/20/23 13:25 History of Present Illness HPI narrative: Seen by Dr. Linton in the ED. Related Data Allergies Allergy/AdvReac Type Severity Reaction Status Date / Time amoxicillin [From AUGMENTIN] Allergy Unknown HIVES Verified 06/20/23 12:16 clavulanic acid Allergy Unknown HIVES Verified 06/20/23 12:16 [From AUGMENTIN] [facility] Social History Social History Alcohol intake: former Physical Exam Vital Signs: Vital Signs: Last Vital Signs Temp 99.2 F 06/20/23 12:16 Pulse 102 H 06/20/23 13:35 Resp 18 06/20/23 13:35 BP 150/102 H 06/20/23 13:35 Pulse Ox 98 06/20/23 13:35 O2 Del Method Room Air 06/20/23 13:35 BMI result Body Mass Index 36.2 Course Course Course Narrative: RME: 42 yold female presents to the ED for left sided chest pain radating arm since this morning. Patient denies any trauma, leg swelling, calf pain, or pleurisy. EKG, labs, and chest xray ordered Medications Administered Discontinued Medications Generic Name Dose Route Start Last Admin Trade Name Henrik PRN Reason Stop Dose Admin Al Hydroxide/Mg Hydroxide 30 ml 06/20/23 14:50 06/20/23 14:59 Magnesium Hydrox/Alum Hydrox 30 Ml Oral.Susp PO 06/20/23 14:51 30 ml ONCE ONE Administration Ketorolac Tromethamine 30 mg 06/20/23 15:29 06/20/23 16:04 Ketorolac Tromethamine 30 Mg/Ml Vial IVPUSH 06/20/23 15:30 30 mg ONCE ONE Administration Medical Decision Making Medical Decision Making MDM Narrative: R Lab Data 06/20/23 12:38 06/20/23 12:38 Labs: Lab Results 06/20/23 06/20/23 06/20/23 Range/Units 12:38 14:13 16:03 WBC 11.4 H (4.8-10.8) X10*3/uL RBC 5.07 (4.20-5.50) X10*6/uL Hgb 15.1 (12.0-16.0) g/dl Hct 43.5 (37.0-47.0) % MCV 85.8 (80.0-98.0) fL MCH 29.8 (27.0-33.0) pg MCHC 34.7 (31.0-35.0) g/dl RDW 12.4 (11.0-16.0) % Plt Count 268 (160-400) X10*3/uL MPV 10.1 (9.4-12.3) fL Immature Gran % (Auto) 0.3 (0.0-0.4) % Neut % (Auto) 61.3 (45-73) % Lymph % (Auto) 29.8 (20-40) % [place] % (Auto) 7.2 (2-11) % Eos % (Auto) 0.9 (0-4) % Baso % (Auto) 0.5 (0-2) % Lymph # (Auto) 3.4 (1.2-4.9) X10*3/uL Reagan # (Auto) 0.8 (0.1-1.2) X10*3/uL Eos # (Auto) 0.1 (0.0-0.4) X10*3/uL Baso # (Auto) 0.1 (0.0-0.2) X10*3/uL Abs Immat Gran (auto) 0.03 (0.00-0.03) X10*3/uL Absolute Neuts (auto) 7.0 (2.0-8.3) x10*3/uL Absolute Nucleated RBC 0.000 (0.0-0.012) X10*3/uL Nucleated RBC % (auto) 0.0 (0.0-0.2) /100WBC PT 11.4 (11.1-13.3) SEC INR 0.9 (0.9-1.1) APTT 35.1 (26.0-36.4) SEC D-Dimer High Sensitivty < 150 NG/ML Sodium 137 (135-145) mmol/L Potassium 3.9 (3.3-5.1) mmol/L Chloride 108 (96-108) mmol/L Carbon Dioxide 19 L (22-29) mmol/L Anion Gap 14 (12-20) BUN 9 (9-16) mg/dL Creatinine 0.76 (0.5-1.4) mg/dL Estim Creat Clear Calc 104.3 Estimated GFR > 60 Random Glucose 158 H (60-115) mg/dL Calcium 9.4 (8.4-10.2) mg/dL Total Bilirubin 0.2 (0.0-1.0) mg/dL AST 12 (5-31) U/L ALT 18 (0-31) U/L Alkaline Phosphatase 78 (39-117) U/L Troponin I High Sens < 2.7 < 2.7 (<3.5-17.0) ng/L B-Natriuretic Peptide < 10 (<100) pg/mL Total Protein 7.7 (6.5-8.0) g/dL Albumin 4.1 (3.5-5.0) g/dL COVID-19 (HARPREET) Negative (Negative) COVID-19 Clin Com See Note Discharge Plan Discharge Clinical Impression: Chest pain Patient Disposition: Home, Self-Care Instructions: Chest Pain (ED) Referrals: Royal Huertas MD [Physician] - 06/21/23 Stand Alone Forms: Work/School Release Interventions: ED Discharge Assessment Last Done: 06/20/23 18:17 Discharge Date/Time: 06/20/23 18:43
[2023-06-20 12:45] LABS: MANUAL DIFF FLAG NO
[2023-06-20 12:47] LABS: Basophils Absolute Auto 0.1 X10*3/uL (0.0-0.2); Basophils Percent Auto 0.5 % (0-2); Eosinophils Absolute Auto 0.1 X10*3/uL (0.0-0.4); Eosinophils Percent Auto 0.9 % (0-4); Hematocrit 43.5 % (37.0-47.0); Hemoglobin 15.1 g/dl (12.0-16.0); Imm Gran Abs Auto 0.03 X10*3/uL (0.00-0.03); Imm Gran Pct Auto 0.3 % (0.0-0.4); Lymphocytes Absolute Auto 3.4 X10*3/uL (1.2-4.9); Lymphocytes Percent Auto 29.8 % (20-40); Mean Corpuscular HGB Conc 34.7 g/dl (31.0-35.0); Mean Corpuscular Hemoglobin 29.8 pg (27.0-33.0); Mean Corpuscular Volume 85.8 fL (80.0-98.0); Mean Platelet Volume 10.1 fL (9.4-12.3); Monocytes Absolute Auto 0.8 X10*3/uL (0.1-1.2); Monocytes Percent Auto 7.2 % (2-11); Neutrophils Percent Auto 61.3 % (45-73); Platelet Count 268 X10*3/uL (160-400); Red Blood Count 5.07 X10*6/uL (4.20-5.50); Red Cell Distribution Width 12.4 % (11.0-16.0); White Blood Count 11.4 X10*3/uL (4.8-10.8)
[2023-06-20 12:56] LABS: INTERNATIONAL NORM RATIO 0.9 (0.9-1.1); Prothrombin Time 11.4 SEC (11.1-13.3)
[2023-06-20 12:58] LABS: Partial Thromboplastin Time 35.1 SEC (26.0-36.4)
[2023-06-20 13:00] LABS: Alanine Aminotransferase 18 U/L (0-31); Albumin Level 4.1 g/dL (3.5-5.0); Alkaline Phosphatase 78 U/L (39-117); Anion Gap 14 (12-20); Aspartate Amino Transferase 12 U/L (5-31); Bilirubin Total 0.2 mg/dL (0.0-1.0); Blood Urea Nitrogen 9 mg/dL (9-16); Calcium 9.4 mg/dL (8.4-10.2); Carbon Dioxide 19 mmol/L (22-29); Chloride 108 mmol/L (96-108); Creatinine Clr Calc Pharmacy 104.3; Estimated Glomerular Filt Rate > 60; Glucose Random 158 mg/dL (60-115); Potassium 3.9 mmol/L (3.3-5.1); Sodium 137 mmol/L (135-145); Total Protein 7.7 g/dL (6.5-8.0)
[2023-06-20 13:06] LABS: B Type Natriuretic Peptide < 10 pg/mL (<100)
[2023-06-20 13:17] LABS: Troponin-I High Sensitivity < 2.7 ng/L (<3.5-17.0)
[2023-06-20 13:32] VITALS: BP 150/102; PULSE 102; RESP 18; O2SAT 99
[2023-06-20 13:35] VITALS: BP 150/102; PULSE 102; RESP 18; O2SAT 98
--- NOTE | 2023-06-20 13:41 | PC.NURSE ---
Patient reports waking up around 6:30 with chest pain that felt like a pressure. States went to work and around 9:30am pain got worse and started radiating to her left arm. States pain has been intermittent and has had some tingling in her hand. Denies headache and sob.
[2023-06-20 14:47] LABS: Troponin-I High Sensitivity < 2.7 ng/L (<3.5-17.0)
[2023-06-20 14:56] LABS: D Dimer High Sensitivity < 150 NG/ML
[2023-06-20] MEDS: Magnesium Hydrox/Alum Hydrox 30 ML ORAL.SUSP PO (14:59)
--- NOTE | 2023-06-20 15:27 | ED.CHESTPAIN ---
HPI - Chest Pain General Chief Complaint: Chest Pain Stated Complaint: chest pain radiating into L arm Time Seen by Provider: 06/20/23 13:25 History of Present Illness HPI narrative: Patient is a 42-year-old female presents today with having chest pain that goes from mid chest to the left arm. It happened while patient woke up this morning. Been fairly constant. It is sharp. It is not made worse with walking. Not associated with shortness of breath not associated diaphoresis. No history of leg swelling. Not on control. No history of blood clots. Not on blood thinners. Patient never had any risk stratification done. She does have a history of borderline diabetes. Currently is on Monjero, quit smoking about 9 years ago. No history of hypertension, high cholesterol. No family history of ACS. No history of lupus. No long distance travel. Pain has been fairly consistent since then. Related Data Allergies Allergy/AdvReac Type Severity Reaction Status Date / Time amoxicillin [From AUGMENTIN] Allergy Unknown HIVES Verified 06/20/23 12:16 clavulanic acid Allergy Unknown HIVES Verified 06/20/23 12:16 [From AUGMENTIN] Review of Systems Review of Systems: Positive chest pain. No shortness of breath no diaphoresis Yes all other systems are reviewed and are negative PMFSH Past Medical History Attestation statement: The following information was validated with the patient. Social History Social History Alcohol intake: former Smoked in Last 30 Days: No Use of substances other than those prescribed or required for medical reasons: No Advance Directives: Yes Advance Directives Information Provided: Yes Advance Directives on File: No Physical Exam Vital Signs: Vital Signs: Last Vital Signs Temp 99.2 F 06/20/23 12:16 Pulse 102 H 06/20/23 13:35 Resp 18 06/20/23 13:35 BP 150/102 H 06/20/23 13:35 Pulse Ox 98 06/20/23 13:35 O2 Del Method Room Air 06/20/23 13:35 BMI result Body Mass Index 36.2 Appearance: Alert. Oriented X3. No acute distress. Eyes: Pupils equal, round and reactive to light. ENT: Pharynx normal. Neck: Normal inspection. Neck supple. No lymph nodes noted. No crepitus CVS: Normal heart rate and rhythm. Pulses normal. Normal S1 and S2 Respiratory: No respiratory distress. Breath sounds normal. No Wheezing. No rales Abdomen: Soft and nontender. No rigidity. No distention. good BS x4 Skin: Skin warm and dry. Normal skin color. Normal skin turgor. Extremities: No lower extremity edema. Neurovascular intact to all extremities. No Lacerations. No Rash Neuro: Oriented X 3. No motor deficit. No sensory deficit. Moving all extermities. No slurred speech Medications Administered Discontinued Medications Generic Name Dose Route Start Last Admin Trade Name Robinsonq PRN Reason Stop Dose Admin Al Hydroxide/Mg Hydroxide 30 ml 06/20/23 14:50 06/20/23 14:59 Magnesium Hydrox/Alum Hydrox 30 Ml Oral.Susp PO 06/20/23 14:51 30 ml ONCE ONE Administration Ketorolac Tromethamine 30 mg 06/20/23 15:29 06/20/23 16:04 Ketorolac Tromethamine 30 Mg/Ml Vial IVPUSH 06/20/23 15:30 30 mg ONCE ONE Administration Medical Decision Making Medical Decision Making [facility] Narrative: Patient well-appearing 2 sets of cardiac enzymes are negative. Per history not consistent with ACS. Her pain is been fairly constant not related to exertion. My interpretation of her EKG showed a sinus rhythm heart rate is 90 OH QRS QTC within normal limits is no acute ST segment elevation. Patient has no significant risk for PE. Her D-dimer is negative. In the setting of low wrists and negative dimer patient unlikely to have pulmonary emboli. A chest x-ray showed no pneumonia no pneumothorax. Two sets of enzymes are negative. Heart score is less than 3. Differential Diagnosis Differential Diagnoses: The differential diagnosis associated with the presentation includes ACS, musculoskeletal chest pain, PE, pericarditis, pneumothorax, rib fracture, dissection Admission/Observation Consideration of admission/observation: Escalation of care including admission/observation considered Lab Data [facility] Lab Attestation statement: I reviewed the patient's lab results. 06/20/23 12:38 06/20/23 12:38 Labs: Lab Results 06/20/23 06/20/23 06/20/23 Range/Units 12:38 14:13 16:03 WBC 11.4 H (4.8-10.8) X10*3/uL RBC 5.07 (4.20-5.50) X10*6/uL Hgb 15.1 (12.0-16.0) g/dl Hct 43.5 (37.0-47.0) % MCV 85.8 (80.0-98.0) fL MCH 29.8 (27.0-33.0) pg MCHC 34.7 (31.0-35.0) g/dl RDW 12.4 (11.0-16.0) % Plt Count 268 (160-400) X10*3/uL MPV 10.1 (9.4-12.3) fL Immature Gran % (Auto) 0.3 (0.0-0.4) % Neut % (Auto) 61.3 (45-73) % Lymph % (Auto) 29.8 (20-40) % [place] % (Auto) 7.2 (2-11) % Eos % (Auto) 0.9 (0-4) % Baso % (Auto) 0.5 (0-2) % Lymph # (Auto) 3.4 (1.2-4.9) X10*3/uL [place] # (Auto) 0.8 (0.1-1.2) X10*3/uL Eos # (Auto) 0.1 (0.0-0.4) X10*3/uL Baso # (Auto) 0.1 (0.0-0.2) X10*3/uL Abs Immat Gran (auto) 0.03 (0.00-0.03) X10*3/uL Absolute Neuts (auto) 7.0 (2.0-8.3) x10*3/uL Absolute Nucleated RBC 0.000 (0.0-0.012) X10*3/uL Nucleated RBC % (auto) 0.0 (0.0-0.2) /100WBC PT 11.4 (11.1-13.3) SEC INR 0.9 (0.9-1.1) APTT 35.1 (26.0-36.4) SEC D-Dimer High Sensitivty < 150 NG/ML Sodium 137 (135-145) mmol/L Potassium 3.9 (3.3-5.1) mmol/L Chloride 108 (96-108) mmol/L Carbon Dioxide 19 L (22-29) mmol/L Anion Gap 14 (12-20) BUN 9 (9-16) mg/dL Creatinine 0.76 (0.5-1.4) mg/dL Estim Creat Clear Calc 104.3 Estimated GFR > 60 Random Glucose 158 H (60-115) mg/dL Calcium 9.4 (8.4-10.2) mg/dL Total Bilirubin 0.2 (0.0-1.0) mg/dL AST 12 (5-31) U/L ALT 18 (0-31) U/L Alkaline Phosphatase 78 (39-117) U/L Troponin I High Sens < 2.7 < 2.7 (<3.5-17.0) ng/L B-Natriuretic Peptide < 10 (<100) pg/mL Total Protein 7.7 (6.5-8.0) g/dL Albumin 4.1 (3.5-5.0) g/dL COVID-19 (HARPREET) Negative (Negative) COVID-19 Clin Com See Note Independent Interpretation I performed an independent interpretation of an: EKG Interpretation: my interpretation patient's EKG shows sinus rhythm heart rate is 90 OH QRS QTC within normal limits is no acute ST segment elevation noted. My interpretation of her chest x-ray was grossly negative for pneumonia pneumothorax rib fracture. I reviewed radiology's reading of the chest x-ray Radiology Impression Discussion of test interpretation with radiology: I have reviewed the radiologist's reading. External Record Review chest pain Discharge Plan Discharge Clinical Impression: Chest pain Patient Disposition: Home, Self-Care Instructions: Chest Pain (ED) Referrals: Royal Huertas MD [Physician] - 06/21/23
[2023-06-20] MEDS: Ketorolac Tromethamine 30 MG/ML VIAL IVPUSH (16:04)
[2023-06-20 16:23] LABS: COVID-19 Test Negative (Negative); IDNOW Serial# BCCEAD1C
== END 2023-06-20 18:43 | disposition home or self-care (01) ==
PROVIDERS: Physician Assistant; Emergency Provider Emergency Medicine Emergency Medical Services; PCP Internal Medicine
DX: R07.9 Chest pain, unspecified (principal); Z20.822 Contact with and (suspected) exposure to COVID-19; E11.9 Type 2 diabetes mellitus without complications
CPT/HCPCS: 36415; 71045; 80053; 83880; 84484; 85025; 85379; 85610; 85730; 87635; 93005; 96374; 99284; 99285; J1885

== ENCOUNTER 2023-06-21 11:45 | Outpatient (REF) | payer OTHER, SELFPAY ==
[2023-06-21 13:01] LABS: D Dimer High Sensitivity < 150 NG/ML
[2023-06-21 13:12] LABS: Amylase 40 U/L (28-100); C Reactive Protein 0.67 mg/dL (< or = 0.50); Gamma Glutamyl Transpeptidase 34 U/L (7-33); Iron 59 mcg/dL (30-160); Lipase 38 U/L (8-78); Percent Iron Saturation 23 % (15-50); Total Iron Binding Capacity 253 mcg/dL (228-428); Unsaturated Iron Binding 194 ug/dL
[2023-06-21 13:28] LABS: Ferritin 186 ng/mL (10-250); TSH reflex Free T4 1.58 uIU/mL (0.32-4.0)
[2023-06-21 13:41] LABS: Erythrocyte Sedimentation Rate 16 MM/HR (0-20)
[2023-06-24 13:09] LABS: Thyroid Peroxidase Antibodies <1 IU/mL (<9)
== END 2023-06-21 11:46 | disposition home or self-care (01) ==
LOC: HO.LAB 11:45
PROVIDERS: PCP Internal Medicine; Visit Provider Physician Assistant
DX: R07.89 Other chest pain (principal)
CPT/HCPCS: 36415; 82150; 82550; 82728; 82977; 83540; 83690; 84443; 85379; 85652; 86140; 86376

== ENCOUNTER → 2023-06-24 09:19 | Outpatient (REF) | payer OTHER, SELFPAY ==
--- NOTE | 2023-06-24 | CA_ITS ---
Acquisition Time: 2023-06-24 09:40:16 Total Exercise Time: 00:06:08 Test Indications: CP Medications: Protocol: DAKOTA Max HR: 164 BPM 92% of Pred: 178 BPM Max BP: 158/066 mmHG Max Work Load: 7.2 METS Exercise stress test exercise 6 min 8 sec of Dakota protocol achieving 91% MPHR, with 2-3/10 chest pain at baseline. 6/10 chest pressure with exercise, with mild SOB, no arrhythmias, with normotensive response to exercise, without EKG changes. Chest pain gradually improved with rest and returned to baseline.Test reviewed with Dr. Jaquez. Referred By: Meron Lemons Overread By: PASHA JAQUEZ
--- NOTE | 2023-06-24 10:31 | CA_ITS ---
Transthoracic Echocardiogram Patient (Last, First, Middle): Fidelina Stone, Gender: Female Date of : 1980 Age: 42 Procedure Date: 06/24/2023 Procedure Type: Transthoracic Echocardiogram Location: OP Height: 160.02 cm Weight: 90.72 kg BSA: 1.93 m2 Heart Rate: 75 bpm BP: 110 / 70 mmHg Smocking Machine Operator: LAURA Referring MD: Meron DUQUE Symptoms: R07.89 OTHER CHEST PAIN Study Quality: Adequate ECG Rhythm: Sinus Conclusions: - The left ventricular systolic function is normal. The calculated ejection fraction is 63% by biplane method. - No obvious valvular pathology seen on this study. Findings Left Ventricle Normal left ventricular cavity size. There is normal left ventricular wall thickness. The left ventricular systolic function is normal. The calculated ejection fraction is 63% by biplane method. There is no evidence of regional wall motion abnormalities. Diastolic function is normal for age. LV peak GLS -18.7%. Right Ventricle Normal right ventricular cavity size and systolic function. Atria Both atria are normal in size. Aortic Valve There is a normal trileaflet aortic valve. There is no aortic valve stenosis. There is no aortic valve regurgitation. Mitral Valve The mitral valve appears normal. There is no mitral valve regurgitation. There is no mitral valve stenosis. Pulmonic Valve The pulmonic valve is likely normal. Tricuspid Valve Normal tricuspid valve structure. There is trace tricuspid valve regurgitation. There is no evidence of pulmonary hypertension. Great Vessels The asc aorta and aortic arch are normal in size. Venous The inferior vena cava is normal in size and collapses greater than 50% with inspiration. Pericardium/Pleural There is no evidence of pericardial effusion. Prior Study Comparison No prior study available for comparison. Recommendations, Care & Conclusions No obvious valvular pathology seen on this study. Measurements 2D Linear Measurements IVSd: 0.78 0.6-0.9/0.6-1.0 cm LVIDd: 4.57 3.9-5.3/4.2-5.9 cm LVIDd Index: 2.37 2.4-3.2/2.2-3.1 cm/m2 LVIDs: 2.80 2.0-3.6 cm LVPWd: 0.85 0.7-1.1 cm LA Diam: 2.90 2.7-3.8/3.0-4.0 cm LAIDs Index: 1.50 1.5-2.3 cm/m2 LV Mass: 147.76 67-162/88-224 g LV Mass Index: 76.56 43-95/49-115 g/m2 LVOT Diam: 2.00 3.0+(-)1.3 cm 2D Systolic Function EF 4C: 66.00 >55% EF 2C: 59.90 >55% EF BiP: 63.10 >55% Mitral Valve MV Pk E: 0.76 MV PK A: 0.61 MV Decel Time: 221.00 E/A: 1.20 E'Lateral: 15.10 E'Medial: 10.90 E/E' Med: 7.00 E/E' Lat: 5.10 PHT: 65.00 MVA PHT: 3.38 Decel Thurston: 3.46 Aortic Valve AoV Pk Norbert: 1.25 AoV Mn Norbert: 0.87 AoV VTI: 0.25 AoV Pk Grad: 6.00 Aov Mn Grad: 3.00 ARAM Cont.VTI: 2.81 LVOT LVOT Pk Norbert: 1.12 LVOT Mn Norbert: 0.73 LVOT VTI: 0.22 LVOT Pk Grad: 5.00 LVOT Mn Grad: 2.00 LVOT Diam: 2.00 LVOT Area: 3.14 Diastolic Function MV Pk E: 0.76 MV Pk A: 0.61 E/A: 1.20 E'Medial: 10.90 E/E' Med: 7.00 E' Laterial: 15.10 E/E' Lat: 5.10 Right Ventricle TAPSE (mm): 18.20 TVS' Norbert: 13.10 Tricuspid Valve TR Pk Norbert: 1.47 TR Pk Grad: 9.00 RA Press: 3.00 RVSP: 12.00 Great Vessels Aorta Sinus of Valsalva: 2.61 2.0-3.5 cm Ao Asc: 2.60 2.1-3.4 cm Ao Arch: 2.50 Updated in Other Vendor System with Status of Final Akshat Fragoso MD electronically signed on 06/24/2023 12:09:18 PM with status of Final
== END ==
LOC: HO.CARD 09:19
PROVIDERS: PCP Internal Medicine; Visit Provider Physician Assistant
DX: R07.89 Other chest pain (principal)
CPT/HCPCS: 93017; 93306

== ENCOUNTER → 2023-06-24 10:31 | Outpatient (BNV) | payer OTHER, SELFPAY | PROVIDERS: PCP Internal Medicine; Visit Provider Internal Medicine | DX: R07.89 Other chest pain (principal) | CPT/HCPCS: 93016; 93018; 93306 ==

== ENCOUNTER → 2023-06-28 10:55 | Outpatient (REF) | payer OTHER, SELFPAY ==
--- NOTE | 2023-06-28 11:04 | CA_ITS ---
Acquisition Time: 2023-06-28 11:19:43 Total Exercise Time: 00:07:18 Test Indications: Abnormal Treadmill Test CP Medications: SEE H Protocol: DAKOTA Max HR: 166 BPM 93% of Pred: 178 BPM Max BP: 160/068 mmHG Max Work Load: 8.9 METS Exericse stress test exercise 7 min 18 sec of Dakota protocol achieving 93% MPHR, with 1-2/10 chest pressure at baseline, 6-7/10 chest pressure at peak exercise, mild SOB, without arrhythmias, with normotensive response to exercise, without EKG changes. Chest pain gradually resolved to baseline with rest. Echo images obtained by tech at rest and immedately post peak exercise. Definity contrast used. Test reviewed with Dr. Fragoso. Referred By: Meron Lemons Overread By: Anh Hampton
== END ==
LOC: HO.CARD 10:55
PROVIDERS: Visit Provider Physician Assistant
DX: R07.89 Other chest pain (principal)
CPT/HCPCS: 93350; Q9957

== ENCOUNTER → 2023-06-28 11:04 | Outpatient (BNV) | payer OTHER, SELFPAY | PROVIDERS: Visit Provider Nurse Practitioner | DX: R07.89 Other chest pain (principal); R94.39 Abnormal result of other cardiovascular function study | CPT/HCPCS: 93016; 93018; 93350; 93352 ==

== ENCOUNTER 2023-07-03 12:46 | Outpatient (AMB) | payer OTHER, SELFPAY ==
--- NOTE | 2023-07-03 12:56 | A.OFFVIS_ITS ---
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 For the last several days, she has been having a left-sided chest pain. This is actually in a very specific location in the chest, above the left breast but radiates towards axilla. She has pain even while resting. She has to be sitting in a certain position with the shoulders brought anteriorly to be comfortable. Otherwise, she is in lot of pain. She is taking his age but still there is discomfort. This is all mainly positional. There is nothing clearly exertional. She underwent a stress test which is unremarkable. No previous history of coronary artery disease or myocardial infarction or cardiomyopathy. She has type 2 diabetes. Otherwise, no recent issues like viral infections or COVID. No known rheumatological issues. [facility] Medical History (Updated 07/03/23 @ 13:51 by Akshat Fragoso MD) Diabetes type 2, controlled Surgical History (Updated 07/03/23 @ 13:03 by Maryann Garcia) No pertinent past surgical history Family History (Updated 07/03/23 @ 13:03 by Maryann Garcia) Mother Diabetes Father Diabetes Social History Alcohol intake: former Review of Systems Const All systems reviewed & are unremarkable except as noted in HPI and below Reports as per HPI and Reports no additional complaints Eyes Reports as per HPI and Denies no additional complaints ENT Denies no additional complaints and Reports as per HPI Card Reports as per HPI, Reports no additional complaints, Denies acrocyanosis, Reports chest pain, Denies leg edema, Denies lightheadedness, Denies palpitations and Denies dyspnea Resp Reports as per HPI, Denies no additional complaints and Denies dyspnea GI Reports as per HPI and Denies no additional complaints Reports as per HPI Musc Reports no additional complaints and Reports as per HPI Skin/Breast Reports system reviewed and no additional complaints, except as documented Neuro Reports no additional complaints and Reports as per HPI Psych Reports no additional complaints and Reports as per HPI Endo Reports no additional complaints, Reports as per HPI and Denies palpitations Henry/Lymph Reports no additional complaints and Reports as per HPI Aller/Immun Reports no additional complaints and Reports as per HPI Physical Exam Vital Signs: Last Vital Signs Pulse 91 07/03/23 12:58 BP 118/80 07/03/23 12:58 BMI result Body Mass Index 35.9 Const General: comfortable and no acute distress Orientation/consciousness: patient oriented x3 HEENT Other: Unremarkable Head: Yes normal to inspection Neck Neck: Yes normal visual inspection Chest Chest palpation & inspection: normal inspection of the chest Resp Auscultation: clear to auscultation bilaterally Cardio Palpation: normal PMI Heart sounds: S1 normal heart sound present, S2 normal heart sound present, no gallops, no murmurs and no rubs GI Palpation (GI): Soft to palpation Back/Spine/Pelvis Other: unremarkable Skin General skin exam: no rashes or lesions noted Neuro General: patient oriented x3 Extrem General: Yes normal to inspection Psych Mental Status: mental status grossly normal Assessment & Plan Assessment & Plan (1) Precordial chest pain: Code(s): R07.2 - Precordial pain Plan Records reviewed. In the baseline EKG, underlying rhythm is sinus at 91/Min; no significant ST-T changes and otherwise unremarkable. Normal IN and corrected QT. Echocardiogram with LVEF of 63%, no wall motion abnormalities and otherwise unremarkable. Normal strain. No evidence of pericardial effusion. She underwent an exercise stress test as well as exercise stress echocardiogram. During both studies, she had some baseline chest pain which was more with exercise but EKGs were unremarkable. Echocardiographic component was also within normal limits. Chest x-ray looks okay. In the lab work, CRP slightly elevated but other labs are unremarkable. Unremarkable troponins and cardiac BNP. Overall, symptoms highly suggestive of something musculoskeletal as it is very positional and she is most comfortable in a certain position and not others. Could also be radicular pain as there is some distribution along the ribs. No clear evidence of obstructive CAD causing symptoms based on available testing. Findings discussed with patient in great detail. Differential diagnosis discussed. From cardiac, will hold off any further workup as the likelihood of this being of coronary etiology is extremely low. Doubt pericarditis too. Possibly costochondritis type picture or radiculopathy. She has been prescribed NSAIDs through her own PCP which may be continued. If no improvement, consider spine imaging as well. Advised to contact us with progress. Total time spent including review of records, counseling, documentation, coordination care-45 minutes. Coding Level of Care Code New Pt Level 4 (61809) Diagnoses Precordial chest pain R07.2
[2023-07-03 12:58] VITALS: BP 118/80; PULSE 91; BMI 35.9
== END 2023-07-03 13:29 | disposition home or self-care (01) ==
PROVIDERS: Visit Provider Internal Medicine
DX: R07.2 Precordial pain (principal)
CPT/HCPCS: 99204

== ENCOUNTER → 2023-07-03 12:46 | Outpatient (BNVA) | payer OTHER, SELFPAY | PROVIDERS: Visit Provider Internal Medicine ==

== ENCOUNTER 2023-07-09 07:50 | Outpatient (REF) | payer OTHER, SELFPAY ==
--- NOTE | ~2023-07-09 | FL_ITS ---
EXAMINATION: XR FLUOROSCOPY ESOPHAGRAM WITH AIR CLINICAL INFORMATION: Atypical chest pain along anterior sternum. COMPARISON: None TECHNIQUE: Fluoroscopic air contrast esophagram examination was performed utilizing standard techniques with thin and thick barium and effervescent granules. Numerous spot images were obtained. FINDINGS: Lateral cine images of the oropharynx and hypopharynx demonstrate normal swallow mechanism with normal epiglottic inversion and soft palate elevation. No tracheal penetration, glottic or subglottic aspiration identified. No nasopharyngeal reflux present. Hypopharyngeal structures appear normal without evidence of mass or diverticulum. There was no significant cricopharyngeal achalasia. Dual and single contrast images of the esophagus demonstrate normal caliber, contour, and mucosal pattern. No evidence of stricture, mass, or ulcerations identified. Primary esophageal peristalsis was normal and propulsive, but was followed by mild tertiary contractions which were nonpropulsive. There was marked episodic gastroesophageal reflux of contrast noted to the level of the thoracic inlet. There is a small type I hiatus hernia. Dual contrast and single contrast images of the stomach demonstrated normal contour and mucosal pattern without evidence of mass, ulceration, or other abnormality. Contrast freely passed into the gastric antrum and duodenal bulb without delay. Single and air-contrast images of the duodenal bulb demonstrate no abnormality. The duodenal sweep has a normal appearance, course, and mucosal fold appearance. The imaged proximal jejunum has a normal fold pattern and caliber. FLUOROSCOPY TIME: 5 minutes 4 seconds Number of Spot Images: 12 spot fluoroscopy images taken; 7 fluoroscopic spot hold cine runs obtained. DOSE AREA PRODUCT: 4897 uGy-m2 (microgray-meter squared) FL/FL barium swallow with air IMPRESSION: 1. Small type I hiatus hernia. 2. Profound gastroesophageal reflux identified to the level of the thoracic inlet. 3. Mild esophageal dysmotility. 4. Normal-appearing stomach, duodenal bulb, sweep, and proximal small bowel.
== END 2023-07-09 07:51 | disposition home or self-care (01) ==
LOC: HO.XRAY 07:50
PROVIDERS: Visit Provider Physician Assistant
DX: R07.89 Other chest pain (principal)
CPT/HCPCS: 74221

== ENCOUNTER → 2023-07-09 07:53 | Outpatient (BNV) | payer OTHER, SELFPAY | PROVIDERS: Visit Provider Radiology Diagnostic Radiology | DX: R07.9 Chest pain, unspecified (principal) | CPT/HCPCS: 74221 ==

== ENCOUNTER 2023-08-27 07:30 | Outpatient (REF) | payer OTHER, SELFPAY ==
[2023-08-27 11:54] LABS: Estimated Average Glucose 117 mg/dL; Hemoglobin A1c % 5.7 % (<6.0)
[2023-08-27 18:19] LABS: Lipase 42 U/L (8-78); Magnesium 2.2 mg/dL (1.6-2.6)
[2023-08-27 18:54] LABS: Folate 5.2 ng/mL (> or = 4.0); Vitamin B12 424 pg/mL (200-900)
[2023-09-02 15:59] LABS: Vitamin D 25-OH, D2 <4 ng/mL; Vitamin D 25-OH, D3 32 ng/mL; Vitamin D 25-OH, Total 32 ng/mL (30-100)
== END 2023-08-27 07:31 | disposition home or self-care (01) ==
LOC: HO.HMGCLR 07:30
PROVIDERS: Nurse Practitioner Family; PCP Internal Medicine; Visit Provider Internal Medicine
DX: R10.9 Unspecified abdominal pain (principal); R19.7 Diarrhea, unspecified; E55.9 Vitamin D deficiency, unspecified; E11.9 Type 2 diabetes mellitus without complications; R68.81 Early satiety; K21.9 Gastro-esophageal reflux disease without esophagitis; R53.82 Chronic fatigue, unspecified; K59.01 Slow transit constipation
CPT/HCPCS: 36415; 82306; 82607; 82746; 83036; 83690; 83735

== ENCOUNTER 2023-08-27 15:21 | Outpatient (AMB) | payer OTHER, SELFPAY ==
--- NOTE | 2023-08-27 15:28 | A.OFFVIS_ITS ---
Intake Vital Signs 08/27/23 15:30 Height 5 ft 3 in Weight 202 lb 13.204 oz BMI 35.9 BP 128/76 Blood Pressure Location Lt brachial Position Sitting Pulse 79 Intake Visit Reasons: Gastroesophageal reflux disease (GERD) Intake Note: Fidelina presents in the office as a new patient for GERD. CC: She states that she ended up in the ED with severe chest pains and was told she has GERD. did not examine her and was sent home in our EGD. Meron Saavedra sent her for an ECG. She did BA swallow and found out that her GERD is significant and so now she is here for potential EGD with Bx. 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 Patient was diagnosed with moderate acid reflux on barium swallow x-ray. Patient was sent by her PCP. Patient was seen in the ER for precordial chest pain. Patient reported chest pain was there no matter all wet, evaluated by Cardiology. Echo and stress his all came back normal. Patient continues to have severe epigastric pain sometimes burning. Pain is there are not necessarily after meals. Patient states that she tries to avoid food that can upset her stomach. Patient has a history of diabetes and currently is taking Mounjaro. Patient is also taking Linzess 145 mcg, feels like it is helping but she does not feel like she empties her bowels completely. Currently patient is taking omeprazole, however she continues to have acid reflux. Patient denies any nausea or vomiting. Denies dysphagia or odynophagia. Denies melena, hematochezia, unintentional weight loss or ribbon like stools. PFSH Medical History Diabetes type 2, controlled Surgical History H/O section Hx of hysterectomy Hx of colonoscopy No pertinent past surgical history Family History Mother Diabetes Father Diabetes Social History Alcohol intake: former Review of Systems Const Denies weight gain and Denies weight loss ENT Reports no additional complaints, Denies dysphagia and Denies odynophagia Card Reports no additional complaints Resp Reports no additional complaints GI Denies abdominal pain, Denies belching, Denies melena, Reports bloating, Denies change in bowel habits, Denies dysphagia, Denies excessive flatus, Reports dyspepsia, Reports heartburn, Denies diarrhea, Denies loose stools, Denies nausea, Denies odynophagia and Denies vomiting Reports no additional complaints Musc Reports no additional complaints Neuro Reports no additional complaints Psych Reports no additional complaints Endo Reports no additional complaints Physical Exam Vital Signs: Last Vital Signs Pulse 79 08/27/23 15:30 BP 128/76 08/27/23 15:30 BMI result Body Mass Index 35.9 Const General: healthy appearing, no acute distress and well developed Nutritional Appearance: obese Orientation/consciousness: patient oriented x3 HEENT Head: Yes normal to inspection, Yes normocephalic and Yes atraumatic Face and sinus: Yes normal facial exam Mouth: Normal oral and palatal mucosa present Throat: Yes posterior oropharynx normal, Yes tonsils normal and Yes uvula midline Eyes General: appearance normal, both eyes and all related structures Neck Neck: Yes normal visual inspection, Yes full ROM and Yes trachea midline Thyroid: Thyroid normal Resp Effort & Inspection: normal respiratory effort, able to speak in complete sentences, no tracheal deviation and symmetric chest movement Auscultation: clear to auscultation bilaterally Cardio Jugular venous distension: no JVD Rate: regular rate GI Inspection: Yes normal to inspection, No distended and Yes obesity Palpation (GI): Soft to palpation, not firm, nontender and No hepatosplenomegaly present Auscultation: normal bowel sounds General: Yes no CVA tenderness Back/Spine/Pelvis Back: no CVA tenderness Skin General skin exam: elasticity normal, turgor normal and dry skin Neuro General: patient oriented x3 Psych Appearance: grossly normal Mental Status: mental status grossly normal Results Reviewed Results Reviewed: BARIUM SWALLOW 07/09/2023 IMPRESSION: 1. Small type I hiatus hernia. 2. Profound gastroesophageal reflux identified to the level of the thoracic inlet. 3. Mild esophageal dysmotility. 4. Normal-appearing stomach, duodenal bulb, sweep, and proximal small bowel. Assessment & Plan Assessment & Plan (1) Early satiety: Code(s): R68.81 - Early satiety (2) Gastroesophageal reflux disease: Code(s): K21.9 - Gastro-esophageal reflux disease without esophagitis Qualifiers: Esophagitis presence: esophagitis presence not specified Qualified Code(s): K21.9 - Gastro-esophageal reflux disease without esophagitis (3) Fatigue: Code(s): R53.83 - Other fatigue Qualifiers: Fatigue type: chronic, unspecified Qualified Code(s): R53.82 - Chronic fatigue, unspecified (4) Constipation: Code(s): K59.00 - Constipation, unspecified Qualifiers: Constipation type: slow transit constipation Qualified Code(s): K59.01 - Slow transit constipation Plan Patient reports postprandial abdominal bloating constipation. Will rule out pancreatic insufficiency. Will check H pylori and will treat empirically if positive. Patient does report epigastric discomfort will check lipase to rule out pancreatitis. Will check vitamin B12, folate, vitamin-D levels. Patient reports to be feeling full quite quickly when eating. Will send her for a gastric emptying study. Patient is taking Mounjaro this could affect gastric emptying. Patient is constipated, will increase Linzess to 290 mcg. Patient will need to go for upper endoscopy in the near future. I will see patient in 3-4 months, sooner on as needed basis. Patient is agreeable to this plan and verbalizes understanding of instructions. She was given the opportunity to ask questions and all questions answered. Thank you for allowing me to participate in her care Orders: Orders Pancreatic Elastase-1 08/30/23 R10.9 - Unspecified abdominal pain H pylori Ag Stool 08/30/23 K21.9 - Gastro-esophageal reflux disease without esophagitis Lipase 08/27/23 R10.9 - Unspecified abdominal pain Vitamin B12 and Folate 08/27/23 R19.7 - Diarrhea, unspecified Vitamin D 25-OH (D2 and D3) 08/27/23 E55.9 - Vitamin D deficiency, unspecified Magnesium 08/27/23 R53.83 - Other fatigue NM gastric emptying study 08/27/23 K21.9 - Gastro-esophageal reflux disease without esophagitis, R68.81 - Early satiety Medications: New linaclotide (Linzess) 290 mcg PO QAM 30 caps 4RF K59.00 - Constipation, unspecified esomeprazole magnesium (Nexium) 40 mg PO DAILY 30 caps 5RF K21.9 - Gastro- esophageal reflux disease without esophagitis Coding Level of Care Code New Pt Level 4 (28404) Diagnoses Early satiety R68.81 Gastroesophageal reflux disease, unspecified whether esophagitis present K21.9 Esophagitis presence: esophagitis presence not specified Chronic fatigue R53.82 Fatigue type: chronic, unspecified Slow transit constipation K59.01 Constipation type: slow transit constipation Time Spent (min) 45 Comment 30 minutes spent with patient and additional 15 minutes spent reviewing her records
[2023-08-27 15:30] VITALS: BP 128/76; PULSE 79; BMI 35.9
== END 2023-08-27 16:12 | disposition home or self-care (01) ==
PROVIDERS: Visit Provider Nurse Practitioner Family
DX: R68.81 Early satiety (principal); K21.9 Gastro-esophageal reflux disease without esophagitis; R53.82 Chronic fatigue, unspecified; K59.01 Slow transit constipation
CPT/HCPCS: 99204

== ENCOUNTER 2023-08-29 05:35 | Outpatient (REF) | payer OTHER, SELFPAY ==
[2023-09-09 20:58] LABS: Pancreatic Elastase-1 >500 mcg/g
== END 2023-08-29 05:36 | disposition home or self-care (01) ==
LOC: HO.HMGCLNP 05:35
PROVIDERS: Visit Provider Nurse Practitioner Family
DX: R10.9 Unspecified abdominal pain (principal); K21.9 Gastro-esophageal reflux disease without esophagitis
CPT/HCPCS: 82656; 87338

== ENCOUNTER 2023-09-18 17:13 | Outpatient (REF) | payer OTHER, SELFPAY ==
--- NOTE | ~2023-09-18 | XR_ITS ---
EXAMINATION: XR LUMBOSACRAL SPINE CLINICAL INFORMATION: Low back pain. COMPARISON: None available. TECHNIQUE: Three views of the lumbosacral spine. FINDINGS: The vertebral bodies and posterior elements are normal. The disc spaces are preserved and the vertebral alignment is normal. The paraspinal soft tissues are normal. Incidental note is made of likely bone island involving the posterior superior medial aspect of the right iliac bone. XR/XR lumbar spine 2-3V IMPRESSION: Unremarkable radiographic appearance of the lumbar spine.
== END 2023-09-18 17:14 | disposition home or self-care (01) ==
LOC: HO.XRAY 17:13
PROVIDERS: PCP Internal Medicine; Visit Provider Physician Assistant
DX: M54.51 Vertebrogenic low back pain (principal)
CPT/HCPCS: 72100

== ENCOUNTER → 2023-09-24 07:28 | Outpatient (REF) | payer OTHER, SELFPAY ==
--- NOTE | ~2023-09-24 | NM_ITS ---
EXAMINATION: RADIONUCLIDE SOLID FOOD GASTRIC EMPTYING 4-HOUR STUDY CLINICAL INFORMATION: Gastroesophageal reflux disease without esophagitis. COMPARISON: No previous gastric emptying study is available for comparison. TECHNIQUE: A standard meal consisting of 4 oz of Egg Beaters brand equivalent tagged with 150 microcuries Tc-99m Sulfur Colloid, 8 oz water and 2 slices of toast with jelly was administered orally to the patient. Images were obtained using a dual head gamma camera in the anterior and posterior projections over of the stomach immediately post ingestion and at hourly intervals up to 4 hours post ingestion. The anterior and posterior counts at each time interval were averaged using the geometric mean and expressed as percentage of the immediate post ingestion counts. FINDINGS: There is good visualization of activity in the stomach immediately post ingestion. As the study progresses, small bowel activity is visualized and this progressively increases in intensity and extent. However, at the end of the study there is severe retention of activity in the stomach at 4 hours Retention in the stomach at each time interval was: 1 hour 67% (normal 37%-90%) 2 hours 54% (normal 30%-60%) 3 hours 44% 4 hours 36% (normal 0%-10%) NM/NM gastric emptying study IMPRESSION: Abnormal study. There is severe abnormal retention of solid food in the stomach at 4 hours. Gastric emptying study grading per JNMT Consensus Recommendations in 2008: https://tech.snmjournals.org/content/36/1/44 Grade 1 (mild retention): 11-20% at 4 hours Grade 2 (moderate retention): 21-35% at 4 hours Grade 3 (severe retention): 36-50% at 4 hours Grade 4 (very severe retention): >50% retention at 4 hours
[2023-09-24 09:25] LABS: Cortisol Random 1.2 ug/dL
[2023-09-25 08:34] LABS: Follicle Stimulating Hormone 2.5 mIU/mL; Lutenizing Hormone 3.5 mIU/mL
[2023-09-28 04:54] LABS: Dihydrotestosterone <5 ng/dL (< OR = 20)
[2023-09-29 04:44] LABS: Estradiol Ultra Sensitive 122 pg/mL
[2023-10-01 13:03] LABS: Testosterone, Free 2.5 pg/mL (0.1-6.4); Testosterone, Total 14 ng/dL (2-45)
[2023-10-02 19:34] LABS: Dexamethasone 357 ng/dL
== END ==
LOC: HO.NUCMED 07:28
PROVIDERS: Absent Provider Internal Medicine Endocrinology, Diabetes & Metabolism; PCP Internal Medicine; Visit Provider Nurse Practitioner Family
DX: K21.9 Gastro-esophageal reflux disease without esophagitis (principal); R68.81 Early satiety; E66.9 Obesity, unspecified; Z68.30 Body mass index [BMI] 30.0-30.9, adult
CPT/HCPCS: 36415; 78264; 80299; 82533; 82642; 82670; 83001; 83002; 83498; 84402; 84403; A9541

== ENCOUNTER 2023-09-25 16:31 | Outpatient (REF) | payer OTHER, SELFPAY | END 2023-09-25 16:32 | disposition home or self-care (01) | LOC: HO.MRI 16:31 | PROVIDERS: PCP Internal Medicine; Visit Provider Physician Assistant | DX: M51.36 Other intervertebral disc degeneration, lumbar region (principal) | CPT/HCPCS: 72148 ==

== ENCOUNTER 2023-10-04 14:19 | Outpatient (AMB) | payer OTHER, SELFPAY ==
--- NOTE | 2023-10-04 15:09 | HO.SPINEOV ---
Intake Intake Visit Reasons: back pain Allergies amoxicillin [From AUGMENTIN] Allergy (Unknown, Verified 08/27/23 15:31) HIVES clavulanic acid [From AUGMENTIN] Allergy (Unknown, Verified 08/27/23 15:31) HIVES Assessment & Plan Assessment & Plan (1) Lumbar radiculopathy: Code(s): M54.16 - Radiculopathy, lumbar region Plan Dear colleague, Thank you for referring Fidelina to our office today. She is a pleasant 42-year-old female who comes in today with a chief complaint of low back pain with radiation into her left leg. She states that her pain began the day after [place]. She states she awoke with new onset low back pain and shooting pains into her posterior left buttocks. She cannot recount a specific inciting incident. She reports associated numbness/burning alongside the pain that shoots into her left buttocks. She states that she is attempted to utilize conservative treatment such as Advil, ice, heat, inversion table, and [id number] pain creams without significant relief of symptoms. She is never been to physical therapy or attempted injections/primary care nurse. She states that she has attempted at-home stretching/exercise without significant relief of symptoms. She reports that her pain is now getting to the point where she ?goes to bed in tears? and is in 7/10 pain throughout the day. She would like to find a solution for this. PMH: GERD, irritable bowel syndrome, x2, hysterectomy, left shoulder surgery. Social hx: The patient does not smoke, reports no substance use. Medications: Nexium, Linzess, Mounjaro. Allergies: Augmentin. Physical exam: The patient has 5/5 strength in her upper and lower extremities. No significant sensational deficits reported on exam. Reflexes are 2+ intact. The patient is able to ambulate well and rises from a seated position without significant difficulty. (-) straight leg raise bilaterally. (-) Burt's. (-) clonus. Imaging review: MRI of the lumbar spine shows a small posterior disc bulge at L5-S1 causing slight bilateral foraminal stenosis at this level. No significant central canal stenosis. Impression: Fidelina is a pleasant 42-year-old female who comes in today with 2 weeks of low back pain after awaking the day after [place] with sharp pain in her low back shooting into her left posterior buttocks. She can not identify specific inciting incident. She has exhausted [id number] remedies for this issue and continues to experience pain with radicular symptoms. We reviewed her MRI and discussed the slight disc bulge at L5-S1. She was encouraged that most disc bulges of this type resorb given time. She is not yet tried physical therapy and I believe that a good place for her to start. I will refer her to physical therapy and encouraged her to call the office to make an appointment with us after this for repeat evaluation if she continues to have pain. Ideally this will resorb on its own and not require surgery. Thank you for allowing us to care for your patient. The total time spent with this visit with this patient was 45 minutes reviewing history, physical exam, MRI imaging review, and implementation of treatment plan or further diagnostic testing Negrito Dangelo MD,PhD [facility] Orders: Orders PT Evaluation and Treatment Today M54.16 - Radiculopathy, lumbar region Coding Level of Care Code New Pt Level 4 (75246) Diagnoses Lumbar radiculopathy M54.16
== END 2023-10-04 15:20 | disposition home or self-care (01) ==
PROVIDERS: PCP Internal Medicine; Referring Provider Physician Assistant; Visit Provider Physician Assistant
DX: M54.16 Radiculopathy, lumbar region (principal)
CPT/HCPCS: 99204

== ENCOUNTER → 2023-10-04 14:19 | Outpatient (BNVA) | payer OTHER, SELFPAY | PROVIDERS: PCP Internal Medicine; Visit Provider Physician Assistant ==

== ENCOUNTER 2023-12-04 16:52 | Outpatient (REF) | payer OTHER, SELFPAY ==
[2023-12-04 17:06] LABS: MANUAL DIFF FLAG NO
[2023-12-04 17:26] LABS: Basophils Absolute Auto 0.1 X10*3/uL (0.0-0.2); Basophils Percent Auto 0.8 % (0-2); Eosinophils Absolute Auto 0.1 X10*3/uL (0.0-0.4); Eosinophils Percent Auto 1.1 % (0-4); Hematocrit 46.9 % (37.0-47.0); Hemoglobin 16.2 g/dl (12.0-16.0); Imm Gran Abs Auto 0.04 X10*3/uL (0.00-0.03); Imm Gran Pct Auto 0.4 % (0.0-0.4); Lymphocytes Percent Auto 38.8 % (20-40); Mean Corpuscular HGB Conc 34.5 g/dl (31.0-35.0); Mean Corpuscular Hemoglobin 30.1 pg (27.0-33.0); Mean Platelet Volume 10.1 fL (9.4-12.3); Monocytes Absolute Auto 0.8 X10*3/uL (0.1-1.2); Monocytes Percent Auto 7.7 % (2-11); Neutrophils Absolute Auto 5.3 x10*3/uL (2.0-8.3); Neutrophils Percent Auto 51.2 % (45-73); Platelet Count 271 X10*3/uL (160-400); Red Blood Count 5.39 X10*6/uL (4.20-5.50); Red Cell Distribution Width 12.4 % (11.0-16.0); White Blood Count 10.4 X10*3/uL (4.8-10.8)
[2023-12-04 17:52] LABS: Estimated Average Glucose 146 mg/dL; Hemoglobin A1c % 6.7 % (<6.0)
[2023-12-04 18:05] LABS: Alanine Aminotransferase 28 U/L (0-31); Albumin Level 4.2 g/dL (3.5-5.0); Alkaline Phosphatase 102 U/L (39-117); Anion Gap 14 (12-20); Aspartate Amino Transferase 15 U/L (5-31); Bilirubin Total 0.3 mg/dL (0.0-1.0); Blood Urea Nitrogen 10 mg/dL (9-16); Calcium 9.7 mg/dL (8.4-10.2); Carbon Dioxide 26 mmol/L (22-29); Chloride 103 mmol/L (96-108); Estimated Glomerular Filt Rate > 60; Glucose Random 126 mg/dL (60-115); Potassium 3.8 mmol/L (3.3-5.1); Sodium 139 mmol/L (135-145); Total Protein 7.8 g/dL (6.5-8.0)
[2023-12-04 18:35] LABS: Creatinine Urine 56.47 mg/dL; Microalbumin Urine < 5.0 mg/L
== END 2023-12-04 16:53 | disposition home or self-care (01) ==
LOC: HO.LABR 16:52
PROVIDERS: PCP Internal Medicine; Visit Provider Physician Assistant
DX: E11.9 Type 2 diabetes mellitus without complications (principal)
CPT/HCPCS: 36415; 80053; 82570; 83036; 85025

== ENCOUNTER 2023-12-10 17:00 | Outpatient (RCR) | payer OTHER, SELFPAY ==
--- NOTE | 2023-10-31 18:10 | MHC.PT.EP ---
[facility] [place] Office [place] Office [place] Office [address] Ramos Acevedo [address] [phone] F: [phone] F: [phone] F: [phone] F: [phone] Physical Therapy Plan of Care Date of Evaluation: 10/29/23 Date of Surgery: Diagnosis: Lumbar Radiculopathy Assessment: Fidelina is a pleasant 42 yo female presenting to skilled physical therapy evaluation and treatment with c/o LBP with radicular s/s. Pt reports sudden onset of central LBP on 09/17/24 during forward bending the day after catching 2 family members who were falling from fainting. She reports constant aching in low back and burning through B buttocks. Pt reports intermittent sharp shooting pain to B buttocks and mid-thigh L>R. Pt's lumbar MRI revealed disc degeneration and bulging at L5-S1 level. She has the most functional difficulty with prolonged positioning, forward bending, and sleeping. Upon evaluation, pt presents with pain, decreased lumbar ROM with hypomobility, along with tissue restriction/TTP through B lumbar PS and glutes. All LE myotomes/dermatomes are WNL, indicating no significant nerve involvement at this time. Pt demonstrates postural deficits contributing to decreased core/hip stability which are exacerbated throughout mobility. Fidelina would benefit from skilled PT services to address muscular imbalances, provide education on proper posture/body mechanics, and increase core/hip stability for improved functional mobility toward PLOF. Pt is recommended to participate in PT 2x/week for 4 weeks. Frequency and Duration: The patient will be seen 2x/week for 4 weeks Short Term Goals: Pt will demonstrate independence with initial HEP through teach-back method, showing proper adherence to PT Pt will be able to perform 15 consecutive supine PPT with proper TA activation Pt will report no shooting pain past B buttocks for 1 weeks, indicating centralization of s/s Surgery Specialist Goals: Pt will achieve 5/5 B glute strength to allow for proper gait mechanics Pt will demonstrate pain-free lumbar ROM WNL for improved tolerance of functional mobility Pt will be able to lift a 20# object from the ground to eye-level shelf with proper mechanics and no exacerbation of s/s Pt will be able to perform 15 consecutive squats with proper form and maintenance of TA activation Treatment Plan: Modalities to reduce pain, spasms and effusion. Manual therapy to restore motion and function. Therapeutic exercise to improve strength and flexibility. Neuromuscular re-education for posture and balance. Therapeutic activities to return to functional activities of daily living. Electronically signed by: Kacie Red, PT, DPT Please sign and return to therapist. Thank you for your referral.
--- NOTE | 2024-02-18 14:19 | MHC.PT.DC ---
[facility] [place] [facility] [place] Office [place] Office [address] Ramos Acevedo [address] [phone] F: [phone] F: [phone] F: [phone] F: [phone] Physical Therapy Discharge Report Diagnosis: Lumbar Radiculopathy Date of Surgery: Date of Evaluation: 10/29/23 Date of Discharge: 02/18/24 Treatments to Date: 8 Cancellations to Date: No Shows to Date: Discharge Status: Discharge Summary: Pt was seen for PT from 10/29/23-12/10/23. Her last attended appointment was 12/10/23. She is being D/C from PT as she underwent lumbar surgery 01/16/24. Pt current level of function unknown at this time Electronically signed by: Kacie Red, PT, DPT Please sign and return to therapist. Thank you for your referral.
== END 2024-02-18 14:19 | disposition home or self-care (01) ==
LOC: HO.PT 17:00
PROVIDERS: PCP Internal Medicine; Visit Provider Physician Assistant
DX: M54.16 Radiculopathy, lumbar region (principal)
CPT/HCPCS: 97012; 97014; 97110; 97140; 97162; 97530

== ENCOUNTER 2023-12-17 14:58 | Outpatient (AMB) | payer OTHER, SELFPAY ==
--- NOTE | 2023-12-17 12:56 | HO.SPINEOV ---
Intake Intake Visit Reasons: follow up on PT/ Sciatica pain Intake Note: Ms. Stone is here today to F/u on Sciatica pain. Transfusion Aide Required: No Allergies amoxicillin [From AUGMENTIN] Allergy (Unknown, Verified 08/27/23 15:31) HIVES clavulanic acid [From AUGMENTIN] Allergy (Unknown, Verified 08/27/23 15:31) HIVES Assessment & Plan Assessment & Plan (1) Lumbar radiculopathy: Code(s): M54.16 - Radiculopathy, lumbar region Plan Fidelina comes in today as a follow up after completing physical therapy. To recap, she was seen on 10/04/2023 after an acute onset of low back pain with shooting pains into her right posterior buttocks that happened around [place]. There was a notable posterior disc bulge at L5-S1 on MRI, causing some mild/moderate bilateral formainal stenosis, worse on the right. She was only 2 weeks out from her injury, and was encouraged that most disc bulges of this type we will resorb given the tincture of time. Unfortunately, she has continued to have worsening symptoms for the last couple of months, and states that physical therapy only exacerbated them. Today she states that the shooting pain goes down her right posterior buttocks all the way down the posterior aspect of her right leg and terminates at the bottom of her right foot. She reports associated symptoms of burning and states that the back of her leg feels like it is ?on fire. She reports extreme discomfort, stating that she is unable to sleep for more than 30-45 minutes at a time, and that driving to work using the gas pedals with her right foot causes her significant discomfort. Her MRI imaging was reviewed with Dr. Dangelo today in clinic. He agrees that the impingement on the right-sided S1 nerve root is likely the culprit for her radiculopathy. It fits this dermatomal distribution, and explains her symptoms. He would like her to have a repeat MRI to evaluate if the disc bulge has worsened prior to her surgery, as her symptoms have significantly progressed. We will be scheduling her for 01/17/24 for a R sided L5-S1 microdiskectomy with metrix. Fidelina was given risk and benefits of surgery including but not limited to infection, hematoma, nerve injury, durotomy, weakness, bowel/bladder injury, persistent pain, as well as the option to continue with conservative treatment and patient wishes to proceed with surgery. They are aware they should stop NSAIDs 7 days prior to surgery. She also understands that she will need to stop her Dapagliflozin 3 days prior to surgery. All questions were answered to the best of our ability. If there is anything about this patients medical history that we have overlooked or concerns you have about us proceeding with surgery we would appreciate any input you can offer. Total amount of time spent in this visit was 20 minutes in discussion of symptoms, MRI imaging results and subsequent plan of care Negrito Dangelo MD,PhD [facility] Orders: Orders MR lumbar spine wo con Today M54.16 - Radiculopathy, lumbar region Coding Level of Care Code Est Pt Level 3 (05006) Diagnoses Lumbar radiculopathy M54.16
== END 2023-12-17 16:02 | disposition home or self-care (01) ==
LOC: HO.HNS 14:58
PROVIDERS: PCP Internal Medicine; Visit Provider Physician Assistant
DX: M54.16 Radiculopathy, lumbar region (principal)
CPT/HCPCS: 99213

== ENCOUNTER → 2023-12-17 14:58 | Outpatient (BNVA) | payer OTHER, SELFPAY | PROVIDERS: PCP Internal Medicine; Visit Provider Physician Assistant ==

== ENCOUNTER 2024-01-09 17:30 | Outpatient (REF) | payer OTHER, SELFPAY ==
--- NOTE | ~2024-01-09 | MR_ITS ---
EXAMINATION: MR LUMBAR SPINE WITHOUT CONTRAST CLINICAL INFORMATION: Worsening right leg pain. COMPARISON: MRI dated 09/25/2023. TECHNIQUE: Multiplanar, multisequence imaging was obtained. FINDINGS: VERTEBRAL BODIES AND PARASPINAL STRUCTURES: The marrow signal is within normal limits. There is reduced intradiscal signal without a significant loss of disc height at the L5-S1 level. The remaining discs are fairly well-hydrated. There are no compression fractures or subluxations. The paraspinal soft tissues are normal. CONUS MEDULLARIS AND CAUDA EQUINA: The distal cord, conus tip, and cauda equina nerve roots are normal. SPINAL LEVELS: L1-L2, L2-L3, L3-L4, and L4-L5: Well-hydrated normal appearance of the discs without central canal stenosis or foraminal narrowing. Stable mild facet arthropathy at the L4-L5 level. L5-S1: Disc degeneration again evident. A previous right subarticular zone disc protrusion has significantly increased in size with now a large extruded component of disc migrating to the inferior endplate of S1. The disc extrusion is heterogeneous in signal and measures up to 2.6 cm CC x 1 cm AP. The base of the disc extrusion measures 1.6 cm TV. The distal extruded component of disc in the right lateral recess of S1 measures 1 cm TV. There is severe compression and posterior displacement of the right S1 nerve root. Mild facet arthropathy evident without central canal stenosis or foraminal narrowing. Very mild endplate edematous changes noted. MR/MR lumbar spine wo con IMPRESSION: Previous disc protrusion has developed into a new large right lateral recess disc extrusion at L5-S1 as described with worsened compression and posterior displacement of the right S1 nerve root.
== END 2024-01-09 17:31 | disposition home or self-care (01) ==
LOC: HO.MRI 17:30
PROVIDERS: PCP Internal Medicine; Visit Provider Physician Assistant
DX: M54.16 Radiculopathy, lumbar region (principal)
CPT/HCPCS: 72148

== ENCOUNTER 2024-01-11 09:49 | Outpatient (REF) | payer OTHER, SELFPAY | END 2024-01-11 09:50 | disposition home or self-care (01) | LOC: HO.MAMMO 09:49 | PROVIDERS: PCP Internal Medicine; Visit Provider Internal Medicine | DX: Z12.31 Encounter for screening mammogram for malignant neoplasm of breast (principal) | CPT/HCPCS: 77063; 77067 ==

== ENCOUNTER → 2024-01-11 10:00 | Outpatient (BNV) | payer OTHER, SELFPAY | PROVIDERS: PCP Internal Medicine; Visit Provider Radiology Diagnostic Radiology | DX: Z12.31 Encounter for screening mammogram for malignant neoplasm of breast (principal) | CPT/HCPCS: 77063; 77067 ==

== ENCOUNTER 2024-01-16 08:28 | Day surgery (SDC) | payer OTHER, SELFPAY ==
[2024-01-02 12:17] VITALS: BP 130/78; PULSE 73; RESP 18; O2SAT 97; BMI 37.2
--- NOTE | 2024-01-02 12:35 | P.CONAN_ITS ---
Documented by User: Janet Harris NP 01/02/24 12:49 HPI - Anesthesia Eval Consult details Narrative: 43yo F for Right L5-S1 MicroLumbar discectomy No recent illness No CP/SOB with minimal activity. Only limited by pain. Prior to 08/2023, no limits. Cardiac w/u 2022 for CP negative for cardiac etiology. Resolved with PPI GERD. Controlled with PPI DM. FBS 100-120 s/p hysterectomy Anesthesia Pre-Procedure Meds Is the patient on any of the following meds?: Any other SGL-1 drugs or drugs that delay gastric emptying (Farxiga) PMFSH Active Problems Active Problems: All Active Problems Lumbar radiculopathy (Acute) Precordial chest pain (Acute) COVID-19 (Acute) Past Medical History Medical History Back pain Constipation Gastroparesis GERD (gastroesophageal reflux disease) Bronchospasm History of anal fissures History of cellulitis Diabetes type 2, controlled Family History Family History Mother Diabetes Father Diabetes Family history of problems with anesthesia: No Surgical History Surgical History Hx of wisdom tooth extraction History of rectal surgery History of endometrial ablation Hx of arthroscopy of shoulder H/O section Hx of hysterectomy Hx of colonoscopy History of Problems with Anesthesia: No Social History Social History Are you a primary home care physical therapist to a significant other at home: No Do you presently have visiting nurse or other home services: No Alcohol intake: former Patient Tobacco Use Status: Former Tobacco user 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 If so, by whom?: No Are you DNR?: No Advance Directives: No Advance Directives Information Provided: Yes Advance Directives on File: No Recently lost weight without trying: No Eating poorly because of decreased appetite: No Nutrition Risks: No Nutritional Risk Patient : No : No Poor oral hygiene: No Meds Allergies Allergy/AdvReac Type Severity Reaction Status Date / Time amoxicillin [From AUGMENTIN] Allergy Unknown HIVES Verified 01/16/24 08:50 clavulanic acid Allergy Unknown HIVES Verified 01/16/24 08:50 [From AUGMENTIN] Home Medications ?Medication ?Instructions ?Recorded ?Confirmed ?Last Taken ?Type dapagliflozin propanediol 10 mg 10 mg PO DAILY 01/02/24 01/02/24 Unknown History tablet (Farxiga) docusate sodium 100 mg capsule 200 mg PO DAILY 01/02/24 01/02/24 Unknown History (Colace) pregabalin 150 mg capsule 150 mg PO BID 01/02/24 01/02/24 Unknown History Exam Height,Weight and Vital Signs: Height 5 ft 3 in Weight 95.254 kg Last Vital Signs Pulse 73 01/02/24 12:17 Resp 18 01/02/24 12:17 BP 130/78 01/02/24 12:17 Pulse Ox 97 01/02/24 12:17 O2 Del Method Room Air 01/02/24 12:17 Pertinent Lab Results Pertinent Lab Results: Laboratory Tests 12/04/23 17:00 WBC 10.4 Hgb 16.2 H Hct 46.9 Plt Count 271 Sodium 139 Potassium 3.8 Chloride 103 Carbon Dioxide 26 BUN 10 Creatinine 0.73 Narrative Narrative: EKG 05/2023 Vent. Rate : 091 BPM Atrial Rate : 091 BPM P-R Int : 166 ms QRS Dur : 076 ms QT Int : 338 ms P-R-T Axes : 052 -03 008 degrees QTc Int : 415 ms Normal sinus rhythm Normal ECG When compared with ECG of 08-OCT-2022 14:44, No significant change was found ECHO 2022 Conclusions: - The left ventricular systolic function is normal. The calculated ejection fraction is 63% by biplane method. - No obvious valvular pathology seen on this study. ECHO Stress 2022 Protocol: DAKOTA Max HR: 166 BPM 93% of Pred: 178 BPM Max BP: 160/068 mmHG Max Work Load: 8.9 METS Exericse stress test exercise 7 min 18 sec of Dakota protocol achieving 93% MPHR, with 1-2/10 chest pressure at baseline, 6-7/10 chest pressure at peak exercise, mild SOB, without arrhythmias, with normotensive response to exercise, without EKG changes. Chest pain gradually resolved to baseline with rest. Echo images obtained by tech at rest and immedately post peak exercise. Definity contrast used. Test reviewed with Dr. Fragoso. Exercise echocardiogram reviewed. At rest, there is normal LVEF and wall motion. With exercise, there is appropriate augmentation of wall thickening and contractility. There is normal decrease in end-systolic volume. No evidence of resting or exercise induced diastolic dysfunction or pulmonary hypertension. Overall, normal study. Airway Mallampati Class: III TM Dist: >3cm Neck ROM: Full Loose/Missing/Broken Teeth: Yes (Molars pulled) Heart: RRR Lungs: CTAB Assessment and Plan Assessment Anesthesia Assessment: Anesthesia Plan Discussed and PAT Visit Final Anesthetic Review Family History of Problems with Anesthesia: No History of Problems with Anesthesia: No Documented by User: Forrest Avelar MD 01/16/24 08:53 HPI - Anesthesia Eval Anesthesia Pre-Procedure Meds If Yes to any meds - educate patient: Pt education - increased risk of aspiration PMFSH Past Medical History Medical History Back pain Constipation Gastroparesis GERD (gastroesophageal reflux disease) Bronchospasm History of anal fissures History of cellulitis Diabetes type 2, controlled Family History Family History Mother Diabetes Father Diabetes Surgical History Surgical History Hx of wisdom tooth extraction History of rectal surgery History of endometrial ablation Hx of arthroscopy of shoulder H/O section Hx of hysterectomy Hx of colonoscopy Social History Social History Are you a primary home care physical therapist to a significant other at home: No Do you presently have visiting nurse or other home services: No Alcohol intake: former Patient Tobacco Use Status: Former Tobacco user 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 If so, by whom?: No Are you DNR?: No Advance Directives: No Advance Directives Information Provided: Yes Advance Directives on File: No Recently lost weight without trying: No Eating poorly because of decreased appetite: No Nutrition Risks: No Nutritional Risk Patient : No : No Poor oral hygiene: No Meds Allergies Allergy/AdvReac Type Severity Reaction Status Date / Time amoxicillin [From AUGMENTIN] Allergy Unknown HIVES Verified 01/16/24 08:50 clavulanic acid Allergy Unknown HIVES Verified 01/16/24 08:50 [From AUGMENTIN] Home Medications ?Medication ?Instructions ?Recorded ?Confirmed ?Last Taken ?Type dapagliflozin propanediol 10 mg 10 mg PO DAILY 01/02/24 01/02/24 Unknown History tablet (Farxiga) docusate sodium 100 mg capsule 200 mg PO DAILY 01/02/24 01/02/24 Unknown History (Colace) pregabalin 150 mg capsule 150 mg PO BID 01/02/24 01/02/24 Unknown History Exam Airway Mallampati Class: II Assessment and Plan Assessment Anesthesia Assessment: Smoking Cess. Discussed and Chart Reviewed Final Anesthetic Review NPO: Yes ASA Class: III Final Preanesthetic Review: No Changes in Pt Med Stat, Meds/Allgs Chart Reviewed, Consent Obtained/Reviewed and Anes Risks/Benef Reviewed Patient Risk: Intermediate Procedure Risk: Intermediate Anesthetic Plan Anesthetic Plan: GA Disposition: Standard PACU
[2024-01-16] VITALS (8 sets, daily range): BP systolic 109–133; BP diastolic 70–87; PULSE 68–90; RESP 12–18; TEMP 36.1–36.8; O2SAT 96–100; BMI 36.0
--- NOTE | ~2024-01-16 | FL_ITS ---
EXAMINATION: XR FLUOROSCOPY WITH IMAGES CLINICAL INFORMATION: Fluoroscopic guidance in OR L5-S1 microlumbar discectomy right. COMPARISON: None available. TECHNIQUE: Fluoroscopy Supervised By: Dr. Dangelo. Fluoroscopy Time: 0.0 min. Cumulative Dose: 5.91 mGy. DAP: 1.61 Gy-cm2. Images: 1. FINDINGS: Fluoroscopic guidance provided for procedure performed by Dr. Dangelo. Single image demonstrates surgical devices/instruments along the posterior aspect of the lower lumbar spine. FL/FL guidance in OR IMPRESSION: Fluoroscopic guidance provided for procedure performed by Dr. Dangelo. Please refer to operative report for detailed evaluation.
--- NOTE | 2024-01-16 07:29 | MHC.SHP ---
Pre-Procedural Eval Section A - 24 Hr Update-Section A only Date of Service: 01/16/24 The patient is an INPATIENT: No Changes since office visit: No Cold of Flu in the past 2 weeks, No New Medical Problems, No Changes in Medication and No Patient answered all questions The patient has been examined within 24 hours of the surgical procedure. The History & Physical has been completed within 30 days and I have reviewed it.: No Section B - Complete if H&P > 30 days Chief Complaint: Radiculopathy, lumbar region Allergies: Allergies Allergy/AdvReac Type Severity Reaction Status Date / Time amoxicillin [From AUGMENTIN] Allergy Unknown HIVES Verified 08/27/23 15:31 clavulanic acid Allergy Unknown HIVES Verified 08/27/23 15:31 [From AUGMENTIN] Review of Systems Sugical H&P ROS: Negative: Constitution, Cardiovascular, Respiratory, Neurological, Psychiatric, Hem-Onc, Allergic/Immunologic, Gastrointestinal, Genitourinary, Musculoskeletal, Integumentary, Endocrine and Eyes/Ears/Nose/Throat Exam Surgical H&P Exam: Not Evaluated: HEENT, Not Evaluated: Heart, Not Evaluated: Lungs, Not Evaluated: Extremities, Not Evaluated: Abdomen, Not Evaluated: Skin and Not Evaluated: Neurological Plan Diagnosis/Plan: Unchanged right L5-S1 microdiskectomy Time Spent With Patient Time: Total time managing care of this patient today _5___ minutes.
[2024-01-16] MEDS: Lactated Ringers 1,000 ML 100 ML IVCONT (08:50)
[2024-01-16] MEDS: Gabapentin 300 MG CAPSULE PO (08:51)
[2024-01-16] MEDS: methocarbamoL 750 MG TABLET PO (08:51)
[2024-01-16] MEDS: vancomycin HCL 1,500 MG in 0.9 % Sodium Chloride 500 ML 333.33 MG IV (09:03)
[2024-01-16 09:13] LABS: Glucose, Whole Blood 171 mg/dL (60-115)
--- NOTE | 2024-01-16 11:30 | P.OP_ITS ---
Operative Note Operative Note Date of Service: 01/16/24 Narrative: Preoperative diagnosis: Right S1 radiculopathy due to disc herniation Postoperative diagnosis: Same Procedure: L5-S1 lumbar microdiskectomy with microscope Surgeon: Darion Dangelo MD, PhD Leather Cartridge Belt Maker: susana Rendon Patient is suffering from severe right S1 radiculopathy. MRI shows a large extruded disc herniation migrating caudally and compressing the S1 nerve root. The patient was offered a lumbar microdiskectomy to decompress the nerve root. The procedure complications were explained. The patient was consented. The patient was brought to the operating room and endotracheally intubated. The patient was turned in a prone position on the Wild frame. Prepping and draping was done followed by time-out. A mid lumbar incision was made followed by release of the paravertebral muscles on the right side to expose the L5-S1 interspace. An intraoperative x-rays obtained to confirm the correct level. The microscope was brought in. A L5 laminotomy was done followed by opening of the flavum ligament. The S1 nerve root was identified as well as disc material sitting lateral and inferior from the S1 nerve root. Several large fragments were removed in total with pituitaries. The L5-S1 disc space was inspected for further fragments. This resulted in an excellent decompression of the S1 nerve root. Hemostasis was done. The microscope was removed. Marcaine was injected intramuscularly.The incision was closed in two layers. Steri-Strips used to approximate seizure. An op-site were taken there was used to cover the incision. All sponge and needle counts were correct. Patient was extubated and transported in stable condition to recovery room. this procedure was done with the aid of a physician biology laboratory assistant who performed the initial exposure until the microscope was brought in and performed the closure of the incision. Anesthesia: General Blood loss: 10 mL Complications: None Specimen: None Surgical time: 40 minutes Disposition: Discharge home
--- NOTE | 2024-01-16 11:34 | PM.DS ---
DS: Providers Provider Date of Service: 01/16/24 Date of discharge: 01/16/24 Primary care physician: Azar Koeing MD Admitting clinician: Darion Dangelo DS: Diagnosis Discharge Diagnosis (1) Lumbar radiculopathy: Status: Acute DS: Summary Time Attestation Discharge Coordination Time (in mins): 5 minutes Quality: Safe Use of Opioids Does Pt have an Active Cancer Diagnosis on the Problem List?: No Quality: Stroke Does the patient have a stroke diagnosis?: No Physical Exam Vital Signs: Vital Signs: Last Vital Signs Temp 98.3 F 01/16/24 09:12 Pulse 68 01/16/24 09:12 Resp 18 01/16/24 09:12 BP 127/86 01/16/24 09:12 Pulse Ox 97 01/16/24 09:12 O2 Del Method Room Air 01/16/24 09:12 BMI result Body Mass Index 36.0 DS: Data Data Completed and Pending Labs on day of discharge: Laboratory Results - last 24 hr 01/16/24 08:55 POC Glucose 171 H Discharge Plan Discharge Patient Disposition: Home, Self-Care Referrals: Azar Koenig MD [Primary Care Provider] - 1 Week Discharge Medications: New docusate sodium [Colace] 100 mg capsule 100 mg PO BID Qty: 20 0RF oxycodone 5 mg tablet 5 mg PO Q4H PRN (Reason: pain) Qty: 20 0RF Rx Instructions: Partial Fill upon patient request. Continued dapagliflozin propanediol [Farxiga] 10 mg tablet 10 mg PO DAILY docusate sodium [Colace] 100 mg Capsule 200 mg PO DAILY pregabalin 150 mg capsule 150 mg PO BID Linzess 290 mcg capsule 290 mcg PO QAM Qty: 30 4RF esomeprazole magnesium [Nexium] 40 mg capsule,delayed release(DR/EC) 40 mg PO DAILY Qty: 30 5RF Discharge Orders: Discharge Order (Routine); Ordered 01/16/24 Ordered By: Theodore Rockwell Diet: Advance to usual diet Activity on Discharge: As tolerated Activity Restrictions/Additional Instructions: After your spinal surgery we ask you to observe the following restrictions/guidelines: Activity: It is normal to feel some discomfort as you increase your activity, but that will improve with time. We ask you avoid heavy lifting or acitivities that cause pain. As a general rule, 8lbs is a safe limit for lifting right after surgery. Walk as much as you feel comfortable but not to exhaustion. You will feel extra tired the first few days after surgery. Stay well hydrated. It is OK to walk up and down stairs You may return to driving when you are off narcotics (such as vicodin, oxycodone, dilaudid, etc), and you are back to normal functional capacity. If you have any concerns please check with office before driving. Return to work is specific to each patient and each surgery, so please speak with your doctor/PA at first follow up. Please bring paperwork such as FMLA at that time if you need it filled out. Medications: For optimum pain control, it is best to start with a combination of 500 mg of Tylenol every 4 hours with 600 mg of Motrin every 8 hours, and use narcotics as needed in between for breakthrough pain. We will give you a short supply of narcotics after surgery (usually one weeks worth). If you need more please call the office but do not use more than prescribed. You will need to give our office 48 hours notice if you need narcotics refilled and we do not fill narcotics on weekends or evenings. If you are on a narcotic, it is a good idea to take a stool softener such as colace or senna to avoid constipation If you take blood thinner such as aspirin, Plavix, Coumadin, Effient, Eliquis etc for conditions such as Afib, DVT, Pulmonary embolus, coronary disease, stents etc please speak with your surgeon about specific details as to when you can resume these medications. You can resume NSAIDs on post op day 1 (eg: Motrin, Naproxen, etc). Follow up: Please call the office, , after surgery to arrange a 3 week follow up for wound check. Wound Care: You may remove your dressing on the first day after surgery. ?You may ?leave open to air. Please do not remove the steri strips underneath. they will fall off on their own in one week. IT IS NORMAL FOR THE WOUND TO OOZE OR BE BLOODY FOR A FEW DAYS AFTER SURGERY. ?IF THIS HAPPENS JUST PLACE NEW DRESSING OVER IT TO AVOID STAINING CLOTHES. You may shower on post op day # 1 We ask that you do not let the water soak the wound. If it does get wet, just towel dry lightly. Please do not scrub your incision or place any type of chemical/ointment on the wound. No tub baths, pools or jacuzzis for one month. If you have any leaking or redness from your wound, or fevers, please call office Print Language: Moldovan
== END 2024-01-16 13:02 | disposition home or self-care (01) ==
PROVIDERS: PCP Internal Medicine; Visit Provider Neurological Surgery
PROC: (CPT 63030; principal; 2024-01-16 09:10)
DX: M54.16 Radiculopathy, lumbar region (principal); R20.8 Other disturbances of skin sensation; E11.9 Type 2 diabetes mellitus without complications; Z79.84 Long term (current) use of oral hypoglycemic drugs; Z87.891 Personal history of nicotine dependence; Z88.1 Allergy status to other antibiotic agents
CPT/HCPCS: 63030; 82947; J0131; J1100; J1885; J2250; J2405; J2704; J3010; J3371

== ENCOUNTER → 2024-01-16 08:28 | Outpatient (BNV) | payer OTHER, SELFPAY | PROVIDERS: PCP Internal Medicine; Visit Provider Neurological Surgery | DX: M54.16 Radiculopathy, lumbar region (principal) | CPT/HCPCS: 63030; 99499 ==

== ENCOUNTER 2024-02-06 10:24 | Outpatient (AMB) | payer OTHER, SELFPAY ==
--- NOTE | 2024-02-06 10:26 | HO.SPINEOV ---
Intake Visit Reasons: 1st post op Intake Note: Ms. Stone is here today for 1st post-op appointment. Library Media Specialist Required: No Allergies amoxicillin [From AUGMENTIN] Allergy (Unknown, Verified 02/06/24 10:28) HIVES clavulanic acid [From AUGMENTIN] Allergy (Unknown, Verified 02/06/24 10:28) HIVES Assessment & Plan Assessment & Plan (1) S/P lumbar microdiscectomy: Code(s): Z98.890 - Other specified postprocedural states Category: Surgical Plan Procedure: L5-S1 lumbar microdiskectomy Fidelina comes in today for her 1st postoperative visit. She reports she has been doing very well since her surgery and is very satisfied with the surgery. She has no longer having severe lumbar radiculopathy she was prior to her surgery. She is able to ambulate better and feels better. She is still having some difficulties with ambulation and feels as though her right leg is somewhat weak. Thankfully, she does feel as though her strength has returned and only reports a very mild tenderness in her low back. She did request additional time off of work, and I wrote a letter for her to keep her out until we see her for subsequent evaluation. She is concerned that she can not perform her job duties to the best of her ability given her continued healing status. No new neurological deficits. Patient is able to ambulate well, rises from a seated position without difficulty. Posterior incision site is closed, well healing, with no signs of drainage. We will follow-up with the patient in 6 weeks for their 2nd postoperative visit. She is provided with a letter for work regarding her continued leave. Negrito Dangelo MD,PhD [facility] Coding Level of Care Code Global (37325) Diagnoses S/P lumbar microdiscectomy Z98.890
== END 2024-02-06 10:56 | disposition home or self-care (01) ==
PROVIDERS: PCP Internal Medicine; Visit Provider Physician Assistant
DX: Z98.890 Other specified postprocedural states (principal)
CPT/HCPCS: 99024

== ENCOUNTER → 2024-02-06 10:24 | Outpatient (BNVA) | payer OTHER, SELFPAY | PROVIDERS: PCP Internal Medicine; Visit Provider Physician Assistant ==

== ENCOUNTER 2024-02-29 09:38 | Outpatient (REF) | payer OTHER, SELFPAY ==
[2024-02-29 09:56] LABS: MANUAL DIFF FLAG NO
[2024-02-29 10:23] LABS: Basophils Absolute Auto 0.1 X10*3/uL (0.0-0.2); Basophils Percent Auto 0.5 % (0-2); Eosinophils Absolute Auto 0.1 X10*3/uL (0.0-0.4); Eosinophils Percent Auto 0.6 % (0-4); Hematocrit 49.3 % (37.0-47.0); Hemoglobin 16.9 g/dl (12.0-16.0); Imm Gran Abs Auto 0.06 X10*3/uL (0.00-0.03); Imm Gran Pct Auto 0.6 % (0.0-0.4); Lymphocytes Absolute Auto 3.1 X10*3/uL (1.2-4.9); Lymphocytes Percent Auto 33.3 % (20-40); Mean Corpuscular HGB Conc 34.3 g/dl (31.0-35.0); Mean Corpuscular Hemoglobin 29.5 pg (27.0-33.0); Mean Platelet Volume 10.3 fL (9.4-12.3); Monocytes Absolute Auto 0.7 X10*3/uL (0.1-1.2); Monocytes Percent Auto 7.1 % (2-11); Neutrophils Absolute Auto 5.4 x10*3/uL (2.0-8.3); Neutrophils Percent Auto 57.9 % (45-73); Platelet Count 279 X10*3/uL (160-400); Red Blood Count 5.73 X10*6/uL (4.20-5.50); Red Cell Distribution Width 12.7 % (11.0-16.0); White Blood Count 9.4 X10*3/uL (4.8-10.8)
[2024-02-29 10:30] LABS: Estimated Average Glucose 160 mg/dL; Hemoglobin A1c % 7.2 % (<6.0)
[2024-02-29 10:49] LABS: Alanine Aminotransferase 20 U/L (0-31); Albumin Level 4.3 g/dL (3.5-5.0); Alkaline Phosphatase 113 U/L (39-117); Anion Gap 12 (12-20); Aspartate Amino Transferase 12 U/L (5-31); Bilirubin Total 0.3 mg/dL (0.0-1.0); Blood Urea Nitrogen 11 mg/dL (9-16); Calcium 9.9 mg/dL (8.4-10.2); Carbon Dioxide 24 mmol/L (22-29); Chloride 107 mmol/L (96-108); Estimated Glomerular Filt Rate > 60; Glucose Random 163 mg/dL (60-115); Potassium 4.1 mmol/L (3.3-5.1); Sodium 139 mmol/L (135-145)
[2024-02-29 11:32] LABS: Creatinine Urine 89.04 mg/dL; Microalbumin Urine < 5.0 mg/L
== END 2024-02-29 09:39 | disposition home or self-care (01) ==
LOC: HO.LABR 09:38
PROVIDERS: PCP Internal Medicine; Visit Provider Physician Assistant
DX: E11.9 Type 2 diabetes mellitus without complications (principal)
CPT/HCPCS: 36415; 80053; 82043; 82570; 83036; 85025

== ENCOUNTER 2024-03-06 10:32 | Outpatient (REF) | payer OTHER, SELFPAY ==
[2024-03-06 12:31] LABS: Alanine Aminotransferase 21 U/L (0-31); Albumin Level 4.1 g/dL (3.5-5.0); Alkaline Phosphatase 120 U/L (39-117); Anion Gap 14 (12-20); Aspartate Amino Transferase 13 U/L (5-31); Bilirubin Total 0.4 mg/dL (0.0-1.0); Blood Urea Nitrogen 10 mg/dL (9-16); Calcium 9.5 mg/dL (8.4-10.2); Carbon Dioxide 23 mmol/L (22-29); Chloride 106 mmol/L (96-108); Estimated Glomerular Filt Rate > 60; Glucose Random 201 mg/dL (60-115); Iron 64 mcg/dL (30-160); Percent Iron Saturation 24 % (15-50); Potassium 3.8 mmol/L (3.3-5.1); Sodium 139 mmol/L (135-145); Total Iron Binding Capacity 272 mcg/dL (228-428); Total Protein 7.5 g/dL (6.5-8.0); Unsaturated Iron Binding 208 ug/dL
[2024-03-06 12:49] LABS: Ferritin 122 ng/mL (10-250)
[2024-03-06 12:50] LABS: Folate 8.1 ng/mL (> or = 4.0); Vitamin B12 339 pg/mL (200-900)
[2024-03-08 08:14] LABS: Prolactin 5.4 ng/mL
[2024-03-16 14:43] LABS: Aldosterone/Renin Ratio 2.7 Ratio (0.9-28.9)
== END 2024-03-06 10:33 | disposition home or self-care (01) ==
LOC: HO.LAB 10:32
PROVIDERS: PCP Internal Medicine; Visit Provider Physician Assistant
DX: L63.1 Alopecia universalis (principal); L68.0 Hirsutism; E26.9 Hyperaldosteronism, unspecified
CPT/HCPCS: 36415; 80053; 82088; 82306; 82607; 82728; 82746; 83540; 84146

== ENCOUNTER 2024-03-09 10:37 | Outpatient (REF) | payer OTHER, SELFPAY ==
[2024-03-18 20:04] LABS: Creatinine, 24 Hr Urine 1.55 g/24 h (0.50-2.15); Total Volume, 24 Hr Urine 1525 mL
== END 2024-03-09 10:38 | disposition home or self-care (01) ==
LOC: HO.LNP 10:37
PROVIDERS: Visit Provider Physician Assistant
DX: L63.1 Alopecia universalis (principal)
CPT/HCPCS: 82530

== ENCOUNTER 2024-03-19 14:27 | Outpatient (AMB) | payer OTHER, SELFPAY ==
--- NOTE | 2024-03-19 14:29 | HO.SPINEOV ---
Intake Visit Reasons: 2nd post op Intake Note: Ms. Stone is here today for her 2nd post op appointment. 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 She is still getting some pain into the buttock area and down the upper part of the posterior thigh but for the most part she is 80-90% better than she was before surgery. She manages this residual pain with just [id number] medications etc.. She is otherwise doing okay so I gave her a note to return back to work on March 23. We discussed activity guidelines, restrictions and expectations after lumbar microdiskectomy. We can see her back on an as-needed basis. Theodore Dangelo MD, PhD [facility] Coding Level of Care Code Global (70777) Diagnoses S/P lumbar microdiscectomy Z98.890
== END 2024-03-19 14:47 | disposition home or self-care (01) ==
PROVIDERS: PCP Internal Medicine; Visit Provider Physician Assistant
DX: Z98.890 Other specified postprocedural states (principal)
CPT/HCPCS: 99024

== ENCOUNTER → 2024-03-19 14:27 | Outpatient (BNVA) | payer OTHER, SELFPAY | PROVIDERS: PCP Internal Medicine; Visit Provider Physician Assistant ==

== ENCOUNTER 2024-03-27 10:54 | Outpatient (REF) | payer OTHER, SELFPAY ==
--- NOTE | ~2024-03-27 | CT_ITS ---
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 Postcontrast images were acquired in the venous and delayed phases. Sagittal and coronal reformatted images were obtained. This CT examination was performed using dose optimization techniques as appropriate, variously including the following: *Automated exposure control *Adjustment of mA and/or kV according to patient size (this includes techniques or standardized protocols for targeted exams where dose is matched to indication/reason for exam; i.e. extremities or head) *Use of iterative reconstruction technique DLP: 866 mGy-cm FINDINGS: LUNG BASES: Mild dependent atelectasis. No pleural effusions. LIVER, GALLBLADDER, AND BILIARY TREE: The liver is normal in size, shape, and attenuation. No focal hepatic lesion or biliary ductal dilatation is appreciated. The gallbladder is physiologically distended without evidence of radiopaque stones, wall thickening or pericholecystic fluid. PANCREAS: Unremarkable SPLEEN: Unremarkable ADRENAL GLANDS: No discrete adrenal nodule or mass. KIDNEYS AND URETERS: The kidneys appear unremarkable in size, shape, and attenuation. No hydronephrosis or obstructing renal calculi. GASTROINTESTINAL TRACT: Small hiatal hernia. Stomach is decompressed. Included bowel loops are non-dilated. Moderate colonic stool burden. ABDOMINAL WALL: No significant hernia is appreciated. LYMPH NODES: No abdominal lymph adenopathy. VASCULAR: The abdominal aorta is normal in caliber. Mild atherosclerotic calcifications of the infrarenal abdominal aorta. OSSEOUS STRUCTURES: No acute or suspicious osseous abnormality. CT/CT adrenal wo/w IV con IMPRESSION: 1. No discrete adrenal nodule or mass. 2. Small hiatal hernia.
[2024-03-27] MEDS: iohexoL 350 MG/ML 75 ML INFUS..BTL 85 ML IV (12:23)
== END 2024-03-27 10:55 | disposition home or self-care (01) ==
LOC: HO.CT 10:54
PROVIDERS: Visit Provider Physician Assistant
DX: E24.9 Cushing's syndrome, unspecified (principal)
CPT/HCPCS: 74170; Q9967

== ENCOUNTER 2024-04-03 13:04 | Outpatient (REF) | payer OTHER, SELFPAY ==
--- NOTE | ~2024-04-03 | US_ITS ---
EXAMINATION: US RETROPERITONEAL LIMITED (RENAL ONLY) CLINICAL INFORMATION: Yeaddiss syndrome. COMPARISON: CT scan from 03/27/2024 TECHNIQUE: Renal ultrasound FINDINGS: Adrenal glands not visualized RIGHT KIDNEY: 11.3 x 5.1 x 6.0 cm (SAG x AP x TRV). The kidney is normal in size, contour, and echogenicity. Renal cortical thickness is normal. No calculi or focal parenchymal lesions. No hydronephrosis. LEFT KIDNEY: 11.9 x 6.0 x 6.5 cm (SAG x AP x TRV). The kidney is normal in size, contour, and echogenicity. Renal cortical thickness is normal. No calculi or focal parenchymal lesions. No hydronephrosis. US/US renal BI IMPRESSION: Unremarkable kidneys base and nonvisualization of adrenal glands..
== END 2024-04-03 13:05 | disposition home or self-care (01) ==
LOC: HO.HMGCX 13:04
PROVIDERS: PCP Physician Assistant; Visit Provider Physician Assistant
DX: E24.9 Cushing's syndrome, unspecified (principal)
CPT/HCPCS: 76775

== ENCOUNTER 2024-04-07 21:02 | Emergency (ER) | payer OTHER, SELFPAY ==
--- NOTE | ~2024-04-07 | CT_ITS ---
EXAMINATION: CT ABDOMEN AND PELVIS WITHOUT CONTRAST CLINICAL INFORMATION: Abdominal distention, vomiting, pain and constipation. COMPARISON: None available. TECHNIQUE: Multidetector volumetric imaging was performed from the superior aspect of the liver through the pubic symphysis. Sagittal and coronal reformatted images were obtained on the technologist's workstation. This CT examination was performed using dose optimization techniques as appropriate, variously including the following: *Automated exposure control *Adjustment of mA and/or kV according to patient size (this includes techniques or standardized protocols for targeted exams where dose is matched to indication/reason for exam; i.e. extremities or head) *Use of iterative reconstruction technique DLP: 772 mGy-cm FINDINGS: LUNG BASES: There is a 4 mm nodule right middle lobe axial image 3/6 no additional nodules seen. The heart size is normal. No pericardial or pleural effusion seen. LIVER, GALLBLADDER, AND BILIARY TREE: The liver is normal in size, shape, and attenuation. No focal hepatic lesion or biliary ductal dilatation is present. The gallbladder is unremarkable with no evidence of radiopaque gallstones, gallbladder wall thickening, or obvious pericholecystic inflammatory changes. PANCREAS: Unremarkable. SPLEEN: Unremarkable. ADRENAL GLANDS: Unremarkable. KIDNEYS AND URETERS: The kidneys are normal in size, shape, and attenuation. No hydronephrosis, hydroureter, or calculi seen. No perinephric stranding. BLADDER: Unremarkable. GASTROINTESTINAL TRACT: There is scattered stool and gas seen in colon without distention. The small bowel loops are normal caliber. Appendix is not visualized with certainty. The stomach is nondistended. There is no free air, free fluid or inflammatory process.. ABDOMINAL WALL: No significant hernia is appreciated. LYMPH NODES: Normal. VASCULAR: Unremarkable. PELVIC VISCERA: Unremarkable. OSSEOUS STRUCTURES: Unremarkable. CT/CT abdomen pelvis wo IV con IMPRESSION: 1. No acute intra-abdominal process seen. 2. Moderate constipation. Fleischner guidelines were followed.
[2024-04-07 21:04] VITALS: BP 153/101; PULSE 122; RESP 18; TEMP 36.8; O2SAT 98; BMI 36.3
[2024-04-07 21:45] LABS: MANUAL DIFF FLAG NO
[2024-04-07 21:46] LABS: Basophils Percent Auto 0.2 % (0-2); Eosinophils Absolute Auto 0.6 X10*3/uL (0.0-0.4); Eosinophils Percent Auto 3.5 % (0-4); Hematocrit 46.1 % (37.0-47.0); Imm Gran Abs Auto 0.04 X10*3/uL (0.00-0.03); Imm Gran Pct Auto 0.2 % (0.0-0.4); Lymphocytes Absolute Auto 3.5 X10*3/uL (1.2-4.9); Lymphocytes Percent Auto 21.2 % (20-40); Mean Corpuscular HGB Conc 34.7 g/dl (31.0-35.0); Mean Corpuscular Hemoglobin 29.5 pg (27.0-33.0); Mean Corpuscular Volume 85.1 fL (80.0-98.0); Mean Platelet Volume 9.8 fL (9.4-12.3); Monocytes Absolute Auto 0.9 X10*3/uL (0.1-1.2); Monocytes Percent Auto 5.7 % (2-11); Neutrophils Absolute Auto 11.3 x10*3/uL (2.0-8.3); Neutrophils Percent Auto 69.2 % (45-73); Platelet Count 269 X10*3/uL (160-400); Red Blood Count 5.42 X10*6/uL (4.20-5.50); Red Cell Distribution Width 12.3 % (11.0-16.0); White Blood Count 16.3 X10*3/uL (4.8-10.8)
[2024-04-07 21:48] LABS: Glucose, Whole Blood 141 mg/dL (60-115)
[2024-04-07 22:01] LABS: Alanine Aminotransferase 27 U/L (0-31); Albumin Level 4.1 g/dL (3.5-5.0); Alkaline Phosphatase 114 U/L (39-117); Anion Gap 13 (12-20); Aspartate Amino Transferase 15 U/L (5-31); Bilirubin Total 0.5 mg/dL (0.0-1.0); Blood Urea Nitrogen 11 mg/dL (9-16); Calcium 9.8 mg/dL (8.4-10.2); Carbon Dioxide 24 mmol/L (22-29); Chloride 104 mmol/L (96-108); Creatinine Clr Calc Pharmacy 104.7; Estimated Glomerular Filt Rate > 60; Glucose Random 134 mg/dL (60-115); Lipase 45 U/L (8-78); Potassium 3.9 mmol/L (3.3-5.1); Sodium 137 mmol/L (135-145); Total Protein 7.5 g/dL (6.5-8.0)
[2024-04-08] VITALS: BP 113/68; PULSE 83; RESP 16; TEMP 36.9; O2SAT 99
--- NOTE | 2024-04-08 00:04 | MHC.EDTECH ---
This pct just assumed care of patient ,vitals taken ,Patient said she is not able to give urine sample at this time .
--- NOTE | 2024-04-08 00:28 | ED.GENADULT ---
HPI - General Adult General Chief complaint: Abdominal Pain Stated complaint: bowel blockage Time Seen by Provider: 04/07/24 23:37 Source: patient, RN notes reviewed and old records reviewed Mode of arrival: ambulatory Limitations: no limitations History of Present Illness ED Provider: Carolyne FREEMAN narrative: 43-year-old female with past medical history significant for type 2 diabetes, diabetic gastroparesis presents for evaluation of constipation She reports that she has not had a bowel movement for about 24 hours. She endorses worsening constipation for the last month and now leading to nausea and vomiting She saw her primary doctor earlier today and was scheduled for outpatient CT scan to rule out obstruction However given that she feels her pain is worsening she presents to the ER now She reports previous section x2 but no other abdominal surgeries She has never had a small bowel obstruction despite her longstanding history of constipation No other complaints or concerns at this time Related Data Home Medications ?Medication ?Instructions ?Recorded ?Confirmed dapagliflozin propanediol 10 mg 10 mg PO DAILY 01/02/24 01/02/24 tablet (Farxiga) docusate sodium 100 mg capsule 200 mg PO DAILY 01/02/24 01/02/24 (Colace) pregabalin 150 mg capsule 150 mg PO BID 01/02/24 01/02/24 Previous Rx's ?Medication ?Instructions ?Recorded docusate sodium 100 mg capsule 100 mg PO BID #20 caps 01/16/24 (Colace) oxycodone 5 mg tablet 5 mg PO Q4H PRN pain #20 tabs 01/16/24 esomeprazole magnesium 40 mg 40 mg PO DAILY #30 caps 01/23/24 capsule,delayed release (Nexium) linaclotide 290 mcg capsule 290 mcg PO QAM #30 caps 01/23/24 (Linzess) metoclopramide HCl 10 mg tablet 10 mg PO Q6H PRN nausea and 04/08/24 (Reglan) vomiting #20 tabs peg 3350-electrolytes 236 240 ml PO Q30M PRN constipation 04/08/24 gram-22.74 gram-6.74 gram-5.86 #4,000 mL gram solution (Golytely) polyethylene glycol 3350 17 gram 17 g PO DAILY 2 weeks #30 ea 04/08/24 oral powder packet (Miralax) Allergies Allergy/AdvReac Type Severity Reaction Status Date / Time amoxicillin [From AUGMENTIN] Allergy Unknown HIVES Verified 04/07/24 21:06 clavulanic acid Allergy Unknown HIVES Verified 04/07/24 21:06 [From AUGMENTIN] Review of Systems Constitutional: Constitutional: Denies body ache(s), Denies chills, Denies fever(s) and Reports headache(s) Eyes: Eyes: Denies blurry vision ENT: Reports headache(s) Cardiovascular: Cardiovascular: Denies chest pain and Denies dyspnea Respiratory: Respiratory: Denies cough and Denies dyspnea Gastrointestinal: Gastrointestinal: Reports abdominal pain, Denies hematochezia, Reports constipation, Reports nausea and Reports vomiting Genitourinary: Genitourinary: Denies dysuria Musculoskeletal: Musculoskeletal: Denies back pain Integumentary/Breasts: Skin/Breast: Denies rash Neurologic: Reports headache(s) PMFSH Past Medical History Medical History Back pain Constipation Gastroparesis GERD (gastroesophageal reflux disease) Bronchospasm History of anal fissures History of cellulitis Diabetes type 2, controlled Surgical History Hx of wisdom tooth extraction History of rectal surgery History of endometrial ablation Hx of arthroscopy of shoulder H/O section Hx of hysterectomy Hx of colonoscopy Family History Family History Mother Diabetes Father Diabetes Social History Social History Are you a primary home care administrator to a significant other at home: No Do you presently have visiting nurse or other home services: No Alcohol intake: never Patient Tobacco Use Status: Former Tobacco user Smoked in Last 30 Days: No Use of substances other than those prescribed or required for medical reasons: No Advance Directives: No Advance Directives Information Provided: No Do you have a plan to hurt others: No Plan Patient : No Physical Exam ED Vital Signs: Vital Signs - 24 hr 04/07/24 21:04 04/08/24 00:00 04/08/24 00:30 Temperature 98.2 F 98.5 F 98.0 F Pulse Rate 122 H 83 87 Respiratory Rate 18 16 16 Blood Pressure 153/101 H 113/68 123/83 Pulse Oximetry 98 99 97 Oxygen Delivery Method Room Air Room Air Room Air BMI result Body Mass Index 36.3 Const General: healthy appearing, comfortable, no acute distress, alert and awake Nutritional Appearance: well nourished Orientation/consciousness: patient oriented x3 HENMT Head: Yes normocephalic and Yes atraumatic Eyes Eyelids: Yes eyelids normal Conjunctivae: conjunctivae normal Sclerae: sclerae normal Corneas: corneas normal Pupils: Equal, round and reactive pupils present EOM: EOMs intact bilaterally Neck Neck: Yes full ROM Resp Effort & Inspection: normal respiratory effort, able to speak in complete sentences and not labored GI Inspection: No distended Palpation (GI): Soft to palpation, not firm, Tenderness to palpation present (GI) in the epigastrum and periumbilically, no guarding and not rigid Auscultation: normoactive bowel sounds Skin General skin exam: elasticity normal Neuro General: patient oriented x3 Cranial nerves: Yes Equal, round and reactive pupils present and Yes Bilaterally intact EOM present Cognition (Neuro): normal cognition Extrem Other: Moving all extremities well without any obvious deformities Medical Decision Making Medical Decision Making MDM Narrative: 43-year-old female presents for evaluation of abdominal pain and constipation. She reports her last bowel movement was about 24 hours ago. She is still passing gas. She endorses increased nausea and belching after eating. Plan for CT scan of the abdomen pelvis to rule out small bowel obstruction. The patient does have a longstanding history of chronic constipation. Her vital signs are significant for tachycardia to 122, she is afebrile. She is quite well appearing patient has had minimal abdominal tenderness but no rebound, no guarding or distention. Less likely surgical abdomen Differential Diagnosis Differential Diagnoses: The differential diagnosis associated with the presentation includes Abdominal pain Gastroparesis Bowel obstruction Constipation Acute appendicitis IBS Lab Data [facility] Lab Attestation statement: I reviewed the patient's lab results. Patient does have a leukocytosis to 16.3 this may be reactive to nausea and vomiting. She has no anemia. Normal platelet count. Patient's chemistries are within normal limits except for an elevated glucose the patient is a known diabetic, there is no evidence of DKA 04/07/24 21:40 04/07/24 21:40 Labs: Lab Results 04/07/24 04/07/24 Range/Units 21:40 21:44 WBC 16.3 H (4.8-10.8) X10*3/uL RBC 5.42 (4.20-5.50) X10*6/uL Hgb 16.0 (12.0-16.0) g/dl Hct 46.1 (37.0-47.0) % MCV 85.1 (80.0-98.0) fL MCH 29.5 (27.0-33.0) pg MCHC 34.7 (31.0-35.0) g/dl RDW 12.3 (11.0-16.0) % Plt Count 269 (160-400) X10*3/uL MPV 9.8 (9.4-12.3) fL Immature Gran % (Auto) 0.2 (0.0-0.4) % Neut % (Auto) 69.2 (45-73) % Lymph % (Auto) 21.2 (20-40) % [place] % (Auto) 5.7 (2-11) % Eos % (Auto) 3.5 (0-4) % Baso % (Auto) 0.2 (0-2) % Lymph # (Auto) 3.5 (1.2-4.9) X10*3/uL [place] # (Auto) 0.9 (0.1-1.2) X10*3/uL Eos # (Auto) 0.6 H (0.0-0.4) X10*3/uL Baso # (Auto) 0.0 (0.0-0.2) X10*3/uL Abs Immat Gran (auto) 0.04 H (0.00-0.03) X10*3/uL Absolute Neuts (auto) 11.3 H (2.0-8.3) x10*3/uL Absolute Nucleated RBC 0.000 (0.0-0.012) X10*3/uL Nucleated RBC % (auto) 0.0 (0.0-0.2) /100WBC Sodium 137 (135-145) mmol/L Potassium 3.9 (3.3-5.1) mmol/L Chloride 104 (96-108) mmol/L Carbon Dioxide 24 (22-29) mmol/L Anion Gap 13 (12-20) BUN 11 (9-16) mg/dL Creatinine 0.75 (0.5-1.4) mg/dL Estim Creat Clear Calc 104.7 Estimated GFR > 60 POC Glucose 141 H (60-115) mg/dL Random Glucose 134 H (60-115) mg/dL Calcium 9.8 (8.4-10.2) mg/dL Total Bilirubin 0.5 (0.0-1.0) mg/dL AST 15 (5-31) U/L ALT 27 (0-31) U/L Alkaline Phosphatase 114 (39-117) U/L Total Protein 7.5 (6.5-8.0) g/dL Albumin 4.1 (3.5-5.0) g/dL Lipase 45 (8-78) U/L Independent Interpretation I performed an independent interpretation of an: CT Scan Interpretation: Agree with Radiology interpretation, moderate constipation nonobstructive bowel gas pattern Radiology Impression Discussion of test interpretation with radiology: I have reviewed the radiologist's reading. Radiologist Impression: CT/CT abdomen pelvis wo IV con IMPRESSION: 1. No acute intra-abdominal process seen. 2. Moderate constipation. Fleischner guidelines were followed. Discharge Plan Discharge Clinical Impression: Constipation Patient Disposition: Home, Self-Care Instructions: Constipation (ED) Additional Instructions: Your CT scan today showed moderate constipation but no evidence of obstruction. I recommend that you increase fluid intake, small sips at a time to prevent nausea I did prescribe Reglan to help with nausea/gastroparesis Take MiraLax every night for the next 2 weeks Take GoLYTELY tomorrow, 1 cup every 30 minutes until your stool is almost clear or you no longer having any abdominal discomfort You may benefit from an enema if you are having trouble keeping the GoLYTELY down tomorrow I recommend that you follow-up with your primary doctor Return for new or worsening symptoms Prescriptions: New metoclopramide HCl [Reglan] 10 mg tablet 10 mg PO Q6H PRN (Reason: nausea and vomiting) Qty: 20 0RF peg 3350-electrolytes [Golytely] 236-22.74-6.74 -5.86 gram recon soln 240 ml PO Q30M PRN (Reason: constipation) Qty: 4000 0RF Rx Instructions: until fecal effluent is clear polyethylene glycol 3350 [Miralax] 17 gram powder in packet 17 g PO DAILY 14 Days Qty: 30 0RF No Action Linzess 290 mcg capsule 290 mcg PO QAM Qty: 30 4RF esomeprazole magnesium [Nexium] 40 mg capsule,delayed release(DR/EC) 40 mg PO DAILY Qty: 30 5RF dapagliflozin propanediol [Farxiga] 10 mg tablet 10 mg PO DAILY docusate sodium [Colace] 100 mg Capsule 200 mg PO DAILY pregabalin 150 mg capsule 150 mg PO BID docusate sodium [Colace] 100 mg capsule 100 mg PO BID Qty: 20 0RF oxycodone 5 mg tablet 5 mg PO Q4H PRN (Reason: pain) Qty: 20 0RF Rx Instructions: Partial Fill upon patient request. Interventions: ED Discharge Assessment Last Done: 04/08/24 00:38 Print Language: Korean
[2024-04-08 00:30] VITALS: BP 123/83; PULSE 87; RESP 16; TEMP 36.7; O2SAT 97
[2024-04-08 00:38] VITALS: BP 123/83; PULSE 87; RESP 16; TEMP 36.7; O2SAT 97
== END 2024-04-08 00:41 | disposition home or self-care (01) ==
PROVIDERS: Emergency Provider Emergency Medicine; PCP Physician Assistant
DX: K59.00 Constipation, unspecified (principal); R11.2 Nausea with vomiting, unspecified; R79.89 Other specified abnormal findings of blood chemistry; R10.2 Pelvic and perineal pain; Z87.891 Personal history of nicotine dependence; Z79.899 Other long term (current) drug therapy
CPT/HCPCS: 36415; 74176; 80053; 82947; 83690; 85025; 99284

== ENCOUNTER 2025-01-16 08:54 | Outpatient (REF) | payer OTHER, SELFPAY | END 2025-01-16 08:55 | disposition home or self-care (01) | LOC: HO.MAMMO 08:54 | PROVIDERS: PCP Internal Medicine; Visit Provider Internal Medicine | DX: Z12.31 Encounter for screening mammogram for malignant neoplasm of breast (principal) | CPT/HCPCS: 77063; 77067 ==

== ENCOUNTER → 2025-01-16 09:00 | Outpatient (BNV) | payer OTHER, SELFPAY | PROVIDERS: PCP Internal Medicine; Visit Provider Internal Medicine | DX: Z12.31 Encounter for screening mammogram for malignant neoplasm of breast (principal) | CPT/HCPCS: 77063; 77067 ==